=== PATIENT | female | born 1960 | race Caucasian/White ===

== ENCOUNTER 2021-05-22 10:48 | Outpatient (REF) | payer OTHER, SELFPAY ==
--- NOTE | ~2021-05-22 | MM_ITS ---
EXAMINATION: MM SCREENING DIGITAL BREAST TOMOSYNTHESIS, BILATERAL CLINICAL INFORMATION: Screening. Asymptomatic. The lifetime risk of breast cancer based on the Tyrer-Cuzick Model is 6.8%. COMPARISON: Mammography: January 01, 2019 and studies dating back to November 06, 2017 TECHNIQUE: Digital breast tomosynthesis is performed in both the craniocaudal and mediolateral oblique views along with computer-aided detection (CAD). Synthesized 2D images are generated from the tomosynthesis. FINDINGS: The breasts are heterogeneously dense, which may obscure small masses (ACR BI-RADS breast composition Category c). There are no significant masses, abnormal calcifications, or other abnormalities. Bilateral sternalis muscle densities noticed. MM/MM tomosynthesis screening BI IMPRESSION: There are no significant changes from prior study. ASSESSMENT: BI-RADS 1: Negative RECOMMENDATION: Routine annual mammography screening. This patient's information was entered into a reminder system with a target due date for their next mammogram.
== END 2021-05-22 10:49 | disposition home or self-care (01) ==
LOC: HO.MAMMO 10:48
PROVIDERS: Visit Provider Family Medicine
DX: Z12.31 Encounter for screening mammogram for malignant neoplasm of breast (principal)
CPT/HCPCS: 77063; 77067

== ENCOUNTER → 2021-08-08 10:07 | Outpatient (BNVA) | payer OTHER, SELFPAY | PROVIDERS: Visit Provider Physician Assistant Medical | DX: Z13.89 Encounter for screening for other disorder (principal) | CPT/HCPCS: 99203 ==

== ENCOUNTER 2024-06-10 10:26 | Outpatient (AMB) | payer BC, SELFPAY ==
--- OUTSIDE RECORDS SUMMARY | 2024-06-10 10:30 | XMS_ITS ---
Author Name [facility] Organization Unknown History of Medication Use Medication Directions Dispensed Refills Start Date End Date [facility] Eliquis 5 mg tablet TAKE 1 TABLET BY MOUTH EVERY 12 HOURS 06/03/2024 06/22/9999 active propranolol ER 120 mg capsule,24 hr,extended release TAKE 1 CAPSULE BY MOUTH EVERY DAY 06/03/2024 06/22/9999 active albuterol sulfate HFA 90 mcg/actuation aerosol inhaler INHALE 2 PUFFS EVERY 4 HOURS NEEDED FOR COUGH,WHEEZE,SHORT NESS OF BREATH 06/03/2024 06/22/9999 active lidocaine (PF) 10 mg/mL (1 %) injection solution Take 3 mL by injection route. 05/05/2024 06/22/9999 active Sutab 1.479-0.188-0.225 gram tablet PLEASE SEE ATTACHED FOR DETAILED DIRECTIONS 12/06/2023 active propranolol ER 120 mg capsule,24 hr,extended release TAKE 1 CAPSULE BY MOUTH EVERY DAY 12/06/2023 active ofloxacin 0.3 % eye drops PLACE 1 DROP IN SURGICAL EYE FOUR TIMES A DAY BEGIN ONE DAY AFTER SURGERY, 12/06/2023 active prednisolone acetate 1 % eye drops,suspension PLACE 1 DROP IN SURGICAL EYE FOUR TIMES A DAY BEGIN ONE DAY AFTER SURGERY, 12/06/2023 active albuterol sulfate HFA 90 mcg/actuation aerosol inhaler INHALE 2 PUFFS EVERY 4 HOURS NEEDED FOR COUGH,WHEEZE,SHORT NESS OF BREATH 12/06/2023 active Synthroid 150 mcg tablet Take 1 tablet every day by oral route. 11/15/2023 active Eliquis 5 mg tablet Take 1 tablet twice a day by oral route. 11/15/2023 active propranolol 11/15/2023 active Synthroid 150 MCG tablet Take 1 tablet (150 mcg total) by mouth daily. 07/24/2023 active fluticasone (FLONASE) 50 MCG/ACT nasal spray spray/apply 1 spray in each nostril daily. 07/24/2023 active propranolol (INDERAL LA) 120 MG 24 hr capsule TAKE 1 CAPSULE BY MOUTH EVERY DAY 09/04/2023 active apixaban (Eliquis) 5 MG tablet Take 1 tablet by mouth twice daily (every 12 hours). 01/19/2023 active propranolol (INDERAL LA) 120 MG 24 hr capsule Take 1 tablet by mouth daily. 01/19/2023 active apixaban (Eliquis) 5 MG TABS tablet Take 1 tablet (5 mg total) by mouth every 12 (twelve) hours. 09/04/2023 active levothyroxine (Synthroid) 150 MCG tablet Take 150 mcg by mouth daily. 01/19/2023 active propranolol (INDERAL LA) 120 MG 24 hr capsule TAKE 1 CAPSULE BY MOUTH EVERY DAY 07/24/2023 active fluticasone (FLONASE) 50 MCG/ACT nasal spray spray/apply 1 spray in each nostril daily. 09/04/2023 active apixaban (Eliquis) 5 MG TABS tablet Take 1 tablet (5 mg total) by mouth every 12 (twelve) hours. 09/04/2023 active levothyroxine (Synthroid) 150 MCG tablet Take 150 mcg by mouth daily. 01/19/2023 active albuterol (PROVENTIL HFA; VENTOLIN HFA) 108 (90 Base) MCG/ACT inhaler Inhale 2 puffs 4 times daily (every 6 hours) as needed for wheezing. 01/19/2023 active Synthroid 150 MCG tablet Take 1 tablet (150 mcg total) by mouth daily. 09/04/2023 active Sodium Sulfate-Mag Sulfate-KCl (Sutab) 4495-073-693 MG Tab Take 12 tablets by mouth once. One dose of 12 tablets on the Day Prior to procedure. One dose of 12 tablets on the Day Of the procedure. BIN: [id number] PCN: [id number] GROUP: [id number] ID: [id number] 01/19/2023 active albuterol 108 (90 Base) MCG/ACT inhaler Inhale 2 puffs into the lungs every 6 (six) hours as needed for wheezing. 07/24/2023 active fluticasone (FloNASE) 50 mcg/spray nasal spray 1 spray into each nostril daily. 01/19/2023 active albuterol 108 (90 Base) MCG/ACT inhaler Inhale 2 puffs into the lungs every 6 (six) hours as needed for wheezing. 09/04/2023 active apixaban (Eliquis) 5 MG TABS tablet Take 1 tablet (5 mg total) by mouth every 12 (twelve) hours. 07/24/2023 active Problems Problem Status Onset Date Problem Type Date of Resolution Source Effusion of joint of left knee active ProblemAct ENS_AONECT Closed fracture patella, vertical active ProblemAct ENS_AONECT Pain of knee region active ProblemAct ENS_AONECT Closed fracture of patella active ProblemAct ENS_AONECT Breast cancer screening by mammogram active EncounterDiagnosisAct HHCCT Current use of senior living anticoagulation active EncounterDiagnosisAct CTT HNEMG Chronic atrial fibrillation (HCC) active EncounterDiagnosisAct CTTHNEMG Pure hypercholesterolemia active EncounterDiagnosisAct CTTHNEMG Hypertension active ProblemAct CTTHJM H Fall active EncounterDiagnosisAct CTTHJMH Graves' disease active ProblemAct ENS_PHCCT Vitamin D deficiency active ProblemAct ENS_PHCCT Graves' disease active ProblemAct CTT HJMH Hypertensive disorder active ProblemAct ENS_PHCCT Postablative hypothyroidism active ProblemAct ENS_PHCCT Osteopenia active ProblemAct ENS_PHCCT Head injury active EncounterDiagnosisAct CTTHJMH Periorbital hematoma of left eye active EncounterDiagnosisAct CTTHJM H Immunizations Vaccine Date Source Lot Number Status tetanus toxoid, reduced diph theria toxoid, and acellular pertussis vaccine, adsorbed 03/26/2020 ENS_PHCCT [id number] A completed
--- OUTSIDE RECORDS SUMMARY | 2024-06-10 10:30 | XMS_ITS | Data Portability ---
Author Organization [place] [facility] CBO ADMIN Address [address] [facility] [place] [address] Care Team Providers Care Client Relation Specialist Name Role Phone JAGJIT SWIFT Filling Room Operator [phone] NORMA MACK Primary Care Provider Assessment Encounter Date Assessment Date Assessment LastModified by Organization Details LastModified Time 06/01/2024 06/01/2024 1. Postablative hypothyroidism. Reviewed 03/2024 labs. Clinically and biochemically euthyroid. Lab obtained on levothyroxine 150mcg daily. Monitoring free T4 levels closely as want to avoid over correction with history of SVT. She states PCP wanted to increase her blood pressure medications in interim. She has not been routinely monitoring blood pressures at home. Discussed that she should start doing ambulatory home blood pressure monitoring. If her blood pressure ranges are in good range she can use this as appropriate reason to not increase her blood pressure medications. 2. Longitudinal lateral left patella fracture She had BMD/DEXA in interim was told she had osteopenia on this. Was not recommended to start treatment. She started calcium and Vitamin D supplements after this. She had left knee aspiration on 05/03/2024. Was told that fluid is likely pseudo-gout. This was sent for a fluid analysis but she has not yet gotten results of this. Educated regarding potential etiologies of pseudo-gout such as: Hypercalcemia or Hyperparathyroidism. Reviewed her prior labs in [facility] and she has never had elevated PTH or calcium levels. Joint injuries and inflammation to site could also have triggered findings in the synovial fluid and potentially on the x-rays could give appearance of findings related to pseudo-gout. She could also have close pseudogout and in this case ruling out hyperparathyroidism is important with a PTH checked. She also has osteopenia and if there is underlying hyperparathyroidism it can also contribute. Discussed at great length with her. Will check PTH. Significant extra time was spent today on reviewing all available data in [facility] EHR and in [facility] EHR and reviewing orthopedic notes and discussing in detail. Not available 06/01/2024 19:56:56 Plan of Treatment Reminders Order Date Submit Date Provider Last Modified By Organization Details Last Modified Time Details Appointments OFFICE VISIT 15 2024 04:00P M Not available Not available Not available Lab TSH, serum or plasma 2023 [email or web address] [facility], [address] [place], [address], 06/09/2024 16:03:23 T4, free, serum 2023 [email or web address] [facility], [address] [place] [address], [id number], 06/09/2024 16:03:23 vitamin D, 25-hydro xy, total, serum 2023 024 [email or web address] [facility], [address] [place], [address], 06/09/2024 16:03:23 PTH (parathy roid hormone) , intact + calcium, serum or plasma 2023 024 [email or web address] [facility], [address] [place], [address], 06/09/2024 16:03:23 Referral None recorded . Procedures None recorded . Surgeries None recorded . Imaging None recorded . Medication Orders None recorded . Patient TargetsNo targets recorded. Patient Instructions Encounter Date Encounter Id Patient Instructions Last Modified By Organization Details Last Modified Time 06/01/2024 [id number] By signing my name below, IAbdullahi, attest that this documentation has been prepared under the direction and in the presence of Jagjit Swift MD. Electronically Signed: Abdullahi Mcbride. I, Jagjit Swift, personally performed the services described in this documentation. All medical record entries made by the scribe were at my direction and in my presence. I have reviewed the chart and discharge instructions (if applicable) and agree that the record reflects my personal performance and is accurate and complete. Jagjit Swift. Not available 06/01/2024 19:53:02 Reason for Referral None Reported. Problems Name Problem SNOMED Code Status Onset Date Resolution Date Notes Provider Name and Address Organization Details Recorded Time Postablat loreta hypothyro idism 612973212 Active 2018 Postablati ve hypothyroi dism Not Available [facility] 19:57:16 Graves' disease 070945338 Active 2015 Graves' disease - Overview: s/p radiactive iodine treatment Apr 2014 Not Available [facility] 19:57:16 Hypertens loreta disorder 52092351 Active 2015 Hypertensi on Not Available [facility] 19:57:16 Osteopeni a 705403748 Active 2023 Jagjit Swift MD [address] [place], [address] , [facility] 16:45:44 Vitamin D deficienc y 46143706 Active 2023 Jagjit Swift MD [address] [place], [address] , [facility] 16:46:04 Problem Notes None recorded. Medical Equipment None Reported. Medications Name Sig Start Date Stop Date Status Note LastModified by Organization Details LastModified Time Synthroid 150 mcg tablet Take 1 tablet (150 mcg total) by mouth daily. 2023 active Not Available Not Available Not Avai lable Synthroid 125 mcg tablet 8 tabs/wee k. Mon through Sat 1 tab and Sun 2 tabs. 10/28 completed Not Available Not Available Not Available propranolol ER 120 mg capsule,24 hr,extended release TAKE 1 CAPSULE BY MOUTH EVERY DAY active Not Available Not Available No t Available albuterol sulfate HFA 90 mcg/actuatio n aerosol inhaler Inhale 2 puffs into the lungs every 6 (six) hours as needed for wheezing . active Not Available Not Available No t Available fluticasone propionate 50 mcg/actuatio n nasal spray,suspen weston spray/ap ply 1 spray in each nostril daily. active Not Available Not Available No t Available Eliquis 5 mg tablet TAKE 1 TABLET BY MOUTH EVERY 12 HOURS active Not Available Not Available No t Available Vitals Date Recorded Body height Body mass index (BMI) Body weight Heart rate Oxygen saturation Oxygen saturation in Arterial blood by Pulse oximetry Systolic blood pressure Diastolic blood pressure Provider Name and Address Organization Details Last Updated DateTime 4 182.9 cm 24.5 kg/m2 84668.2 2 g 96 /min 97 % 97 % 120 mm[Hg] 80 mm[Hg] [facility] 16:27:24 Social History None recorded. Functional Status None recorded. Mental Status None recorded. Family History Nothing Reported. Medical History No medical history recorded. Gynecological HistoryNo gynecological history recorded. Obstetrics History GPAL:G 0 P 0 0 0 0 Immunizations Vaccine Type Date Status Note Provider Nam e and Address Organization Details Recorded Time Tdap 03/26/2020 completed Not Available [facility] 05/28/2024 22:55:07 Past Encounters Encounter ID Performer Location Encounter Start Date Encounter Closed Date Diagnosis/Indication Diagnosis SNOMED-CT Code Diagnosis ICD10 Code [id number] Jagjit Swift MD [address], [address] [place] [address] 06/01/2024 16:13:22 06/01/2024 16:51:07 Postablative hypothyroidism 425152776 E89.0 Osteopenia 243501862 M85 .80 Vitamin D deficiency 347 22735 E55.9 Health Concerns Section Related Observation LastModified by Organization Detai ls LastModified Time None Recorded Concern Status LastModified by Organization Details LastModified Time None Recorded Advance Directives Directive None Recorded Payers Encounter Date Sequence Insurance Name Policy Number Policy Redd Covered Member ID Redd Member ID Guarantor Name 06/01/2024 1 [place] [id number] Xenia Zee [id number] Xenia Zee Notes Date Note Type Note Provider Name and Address Organization Details Recorded Time 06/01/2024 text/html Post ablative hypothyroidism.She was initially hypothyroid, then became hyperthyroid and received radioactive iodine around March 2014. She was on a relatively stable dose of Synthroid 137 mcg daily and was maintaining normal TFTs in the past. Of note: Historically she had become hyponatremic to 127 and her HCTZ was discontinued by her kaiako kura tuarua.?? She has had SVT and continues to be in A. fib rate controlled and is on propranolol extended release 120 mg daily and on anticoagulation with Eliquis and follows with her kaiako kura tuarua every 6 months.?? She has had TFT variability over time. ??10/2022: Despite levothyroxine dose increase and maintaining on brand Synthroid TSH increased to 7.54 Levothyroxine was subsequently increase to 150mcg daily. Today: She is continuing on Levothyroxine 150mcg daily. Confirms taking with appropriate precautions. She is not monitoring her blood pressures at home.She states that her PCP wants to increase her anti-hypertensive medication but she is reluctant to do so. Notes that at other physician's visits her blood pressure is in good range. Patient fractured her left patella after slipping on a rug at [place]. States that she wore a brace for 10-11 weeks without much improvement. She had followed with orthopedic surgeon and told to take topical Voltaren which has not provided much relief. Continues to have aches and pain, ambulating with assistance of a cane. 0n 05/03/2024 she had left knee aspiration, fluid was sent for fluid analysis. Was told that her fluid is medical sales representative of pseudo-gout.She has no hx of hypercalcemia or hyperparathyroidism. After fracture had BMD/DEXA done and was told she had osteopenia, she was recommended to start calcium and Vitamin D supplements in interim. Was not told she needed to start anti-resorptive treatment. She offers no other physical complaints at this time. LABS:01/07/23: TSH: 4.26 , T4 FREE: 1.510/01/12: TSH: 2.45 , T4 FREE: 1.802/04/15: TSH: 1.85 , T4 FREE: 1.710: TSH: 3.35 , T4 FREE: 1.5 Jagjit Swift MD [address] [place], [address], [place] [facility] 06/01/2024 19:57:46 OBGyn Episode No OBEpisode recorded.
--- OUTSIDE RECORDS SUMMARY | 2024-06-10 10:30 | XMS_ITS | Continuity of Care Document ---
Author Organization [place] [facility] Address [address] [facility] [address], [address] [place] [address] Care Team Providers Care Bottom Loader Name Role Phone JAGJIT SWIFT Automotive Parts Advisor [phone] NORMA MACK Primary Care Provider [phone] Assessment Encounter Date Assessment Date Assessment LastModified [...] or Hyperparathyroidism. Reviewed her prior labs in [facility] and she has never had elevated PTH [...] today on reviewing all available data in [facility] EHR and in [facility] EHR and reviewing orthopedic notes and discussing in detail. Not available 06/01/2024 19:56:56 Plan of Treatment Reminders Order Date Submit Date Provider Last Modified By Organization Details Last Modified Time Details Appointments OFFICE VISIT 15 2024 04:00P M Not available Not available Not available Lab TSH, serum or plasma 2023 024 [email or web address] [facility], [address] [place] [address], [address], 06/09/2024 16:03:23 T4, free, serum 2023 024 [email or web address] [facility], [address] [place] [address], [address], 06/09/2024 16:03:23 vitamin D, 25-hydro xy, total, serum 2023 024 [email or web address] [facility], [address] [place], [address], 06/09/2024 16:03:23 PTH (parathy roid hormone) , intact + calcium, serum or plasma 2023 024 [email or web address] [facility], [address] [place] [address], [address], 06/09/2024 16:03:23 Referral None recorded . Procedures None recorded . Surgeries None recorded . Imaging None recorded . Medication Orders None recorded . Patient TargetsNo targets recorded. Patient Instructions Encounter Date Encounter Id Patient Instructions Last Modified By Organization Details Last Modified Time 06/01/2024 [id number] By signing my name below, IAbdullahi, attest [...] Details Recorded Time Postablat loreta hypothyro idism 808539305 Active 2018 Postablati ve hypothyroi dism Not Available [facility] 4 19:57:16 Graves' disease 419913281 Active 2015 Graves' disease - Overview: s/p radiactive iodine treatment Apr 2014 Not Available [facility] 4 19:57:16 Hypertens loreta disorder 53143612 Active 2015 Hypertensi on Not Available [facility] 4 19:57:16 Osteopeni a 967855729 Active 2023 Jagjit Swift MD [address] [place], [address] , [employer] [facility] 4 16:45:44 Vitamin D deficienc y 15435927 Active 2023 Jagjit Swift MD [address] [place], [address] , [facility] 4 16:46:04 Problem Notes None recorded. Medical Equipment None Reported. Medications Name Sig Start Date Stop Date Status Note LastModified by Organization Details LastModified Time Synthroid 150 mcg tablet Take 1 tablet (150 mcg total) by mouth daily. 2023 active Not Available Not Available Not Avai lable Synthroid 125 mcg tablet 8 tabs/debbiee k. Mon through Sat 1 tab and [...] Updated DateTime 4 182.9 cm 24.5 kg/m2 76374.2 2 g 96 /min 97 % 97 % 120 mm[Hg] 80 mm[Hg] [facility] 4 16:27:24 Social History None recorded. [...] Diagnosis/Indication Diagnosis SNOMED-CT Code Diagnosis ICD10 Code [id number] Jagjit Swift MD [address], [address] [place] [address] 06/01/2024 16:13:22 06/01/2024 16:51:07 Postablative hypothyroidism 631857783 E89.0 Osteopenia 404107587 M85 .80 Vitamin D deficiency 347 66166 E55.9 Health Concerns Section Related Observation LastModified by Organization Detai ls LastModified Time None Recorded Concern Status LastModified by Organization Details LastModified Time None Recorded Payers Encounter Date Sequence Insurance Name Policy Number Policy Redd Covered Member ID Redd Member ID Guarantor Name 06/01/2024 1 [place] [id number] Xenia Zee [id number] Xenia Zee Notes Date Note Type [...] and her HCTZ was discontinued by her supervisor insecticide.?? She has had SVT and continues to be in A. fib rate controlled and is on propranolol extended release 120 mg daily and on anticoagulation with Eliquis and follows with her supervisor insecticide every 6 months.?? She has had TFT [...] analysis. Was told that her fluid is residential sales representative of pseudo-gout.She has no hx [...] T4 FREE: 1.5 Jagjit Swift MD [address] [place], [address], [place] [facility] 06/01/2024 19:57:46 OBGyn Episode No OBEpisode recorded.
--- OUTSIDE RECORDS SUMMARY | 2024-06-10 10:30 | XMS_ITS | Data Portability ---
Author Organization [place] [facility] Suzi Munoz [place] [place] Address [address] [place] [address] Care Team Providers Care Legal Counsel Name Role Phone NORMA MACK Primary Care Provider [phone] NROMA MACK Referring Provider Assessment Encounter Date Assessment Date Assessment LastModified by Organization Details LastModified Time 11/13/2023 11/13/2023 She sustained a longitudinal lateral patella fracture. Will be able to manage this nonoperatively. She was fit with a hinged knee brace and will use this for ambulation. This will allow her to maintain her range of motion. She will avoid any high impact activity. Plan to follow-up in 3 weeks for repeat assessment with repeat left knee x-rays Patient was prescribed a hinged knee brace for above diagnosis. The patient is ambulatory but has weakness and/or instability of their Left knee which requires stabilization from this semi-rigid / rigid orthosis to improve their function. [email or web address] Not available 11/13/2023 15:16:29 12/04/2023 12/04/2023 Her vertical pat arely fracture is healing very well. Continue to manage this nonoperatively. Continue in the core flex hinged brace. She can continue with her lunchtime walks. She would like to defer physical therapy at this time. Plan to follow-up in 3 to 4 weeks for repeat assessment and repeat left knee x-rays [email or web address] Not available 12/04/2023 16:25:57 01/01/2024 01/01/2024 She is now approximately 2 months after what was likely a patella fracture, although it is difficult to determine that this was not bipartite, but on her initial x-rays this does seem to be more consistent with a fracture. She is currently doing well and has no limitations. She may follow-up as needed. Not available 01/03/2024 12:10:50 05/03/2024 05/03/2024 She elected to move forward with a left knee aspiration which was tolerated well. Fluid consistent with pseudogout for which she would like to monitor her symptoms. Fluid was sent for analysis. Will contact her with the results. Recommend compression with an Yuval bandage, ice and reducing her activity. She will monitor for any recurrent symptoms and will contact the office to make an appointment with one of our knee specialist in the future if needed. Patient was seen and evaluated by Pb Ann PA-C in indirect conjunction with Documenting Provider: Katerine Bacon MD He/She agrees with history, physical examination, tests/diagnostic imaging, and treatment plan [email or web address] Not available 05/03/2024 12:51:59 05/28/2024 05/28/2024 The above findin gs were discussed in detail with the patient today. AI discussed the history, clinical examination, and imaging findings with the patient in detail today. At this point her left medial joint line pain is likely related to early degenerative changes. I have told them that ultimately for a person with early degenerative changes about the knee, like they have (the cartilage wear and tear), that the mainstay of treatment are things like time, rest, relative rest, activity modification, physical therapy or home strengthening (specifically quadriceps, hamstrings, and core musculature) programs, weight loss with or without a college scouting coordinator/director it assistance, stations superintendent bracing if desired/tolerated, prescription strength oral anti-inflammatories if they can be safely tolerated (may need to discuss with primary care provider), Tylenol, and intermittent use of corticosteroid injections and consideration of viscosupplementation injections. My recommendation that she pursue activity modification, relative rest, time as well as prescription for physical therapy focusing quadriceps, hamstrings and core muscle strengthening. She may continue judicious use of antipyretics and anti-inflammatory medication. I did recommend utilization of cryotherapy as well as topical anti-inflammatory medication. Lastly, we did review the risks and benefits and alternatives related to corticosteroid injection of the knee. At this point patient politely declined pursuing injection. Patient will return in 6 weeks for repeat clinical evaluation. Patient was in agreement this plan all questions were answered to satisfaction. PRIOR TK 05/03/24 She elected to move forward with a left knee aspiration which was tolerated well. Fluid consistent with pseudogout for which she would like to monitor her symptoms. Fluid was sent for analysis. Will contact her with the results. Recommend compression with an Yuval bandage, ice and reducing her activity. Not available 05/28/2024 10:59:03 Plan of Treatment Reminders Order Date Submit Date Provider Last Modified By Organization Details Last Modified Time Details Appointments ESTABLISH ED/AONE REFERRAL 2024 04:15P Maida Ann PA-C Not available Not available Not available Lab crystals, synovial fluid 2023 024 Not available 05/10/2024 09:33:46 cell count w/ diff, synovial fluid 2023 024 [email or web address] Not available 05/10/2024 09:33:46 culture, synovial fluid 2023 024 Not available 05/10/2024 09:33:46 Referral orthopedi c physical therapist referral - Other Comments: 2023 024 wendi Ann Not available 05/28/2024 10:55:10 Procedures None recorded. Surgeries None recorded. Imaging XR, knee, 3 view 2023 024 [email or web address] [facility], [address], [place], [address], 11/13/2023 20:58:52 XR, knee, 3 view 2023 024 [email or web address] [facility], [address], [address], [place], [address], 12/05/2023 10:31:56 XR, knee, 3 view 2023 024 [email or web address] [facility], [address], [address], [place], [address], 01/01/2024 19:18:53 XR, knee, 3 view 2023 024 [email or web address] [facility], [address], [address], [place], [address], 05/03/2024 16:28:09 XR, knee, 3 view 2023 024 [email or web address] [facility], [address], [address], [place], [address], 06/01/2024 08:44:02 Medication Orders lidocaine (PF) 10 mg/mL (1 %) injection solution 2023 024 [email or web address] [id number], [address] [place], [address], 05/03/2024 16:28:09 Patient TargetsNo targets recorded. Patient Instructions Encounter Date Encounter Id Patient Instructions Last Modified By Organization Details Last Modified Time 11/13/2023 [id number] X-rays of the le ft knee were obtained in the [place] office on 11/13/2019 force demonstrates a longitudinal lateral patella fracture [email or web address] Not available 11/13/2023 15:16:13 12/04/2023 [id number] X-rays of the le ft knee were obtained in the [place] office on12/04/2023 demonstrates a longitudinal lateral patella fracture with interval callus Not available 12/04/2023 16:26:11 01/01/2024 [id number] X-rays of the le ft knee obtained on 01/01/2024 demonstrate a lateral facet patella fracture. Not available 01/03/2024 12:11:05 05/03/2024 [id number] X-rays of the le ft knee obtained on 05/03/2024 demonstrate a stable lateral facet patella fracture With interval healing from prior x-rays. No new acute osseous abnormalities. 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 There is mild joint space narrowing along the medial compartment. Neutral alignment. Mild DJD noted. No other acute fractures or osseous abnormalities Not available 05/28/2024 10:56:36 Reason for Referral Other Comments: Referring Physician: Roque Mckeon, Orthopedic Surgery, Encounter Date: 05/28/2024 Results Created Date Observation Date Name Description Value Unit Range Abnormal Flag Note LastModifiedBy Organization Detail LastModifiedTime Result Notes None recorded. Problems Name Problem SNOMED Code Status Onset Date Resolution Date Notes Provider Name and Address Organization Details Recorded Time Closed fracture patella, vertical 994791798 Active [address], [place], [address] , [place] [facility] 4 15:16:02 Pain of left knee region 05484996094611 9 Active [address], [place], [address] , [place] [facility], [facility] 4 16:24:26 Closed fracture of patella 54173426 Active [address], [place], [address] , [place] [facility] 4 11:11:07 Effusion of joint of left knee 01239701825746 5 Active [address], [place], [address] , [place] [facility], [facility] 4 12:27:10 Pain of knee region 1665001777 Active [address], [place], [address] , [place] [facility], [facility] 4 10:50:13 Problem Notes None recorded. Procedures Surgical History Date Name Laterality Status Provider Name and Address Organization Details Recorded Time 4 MJG Knee Aspiration completed [address], [place], [address], [place] [facility] 05/03/2024 12:52:32 Tmj repair of joint disc completed Zeny Coombs [facility] 11/13/2023 14:36:39 Imaging Results None recorded. Procedure Notes None recorded. Medical Equipment None Reported. Allergies No known drug allergies Medications Name Sig Start Date Stop Date Status Note LastModified by Organization Details LastModified Time ofloxacin 0.3 % eye drops PLACE 1 DROP IN SURGICAL EYE FOUR TIMES A DAY BEGIN ONE DAY AFTER SURGERY, 12/31 completed Not Available Not Available Not Available Synthroid 150 mcg tablet Take 1 tablet every day by oral route. active Not Available Not Available No t Available prednisolon e acetate 1 % eye drops,suspe nsion PLACE 1 DROP IN SURGICAL EYE FOUR TIMES A DAY BEGIN ONE DAY AFTER SURGERY, 12/31 completed Not Available Not Available Not Available propranolol ER 120 mg capsule,24 hr,extended release TAKE 1 CAPSULE BY MOUTH EVERY DAY active Not Available Not Available No t Available albuterol sulfate HFA 90 mcg/actuati on aerosol inhaler INHALE 2 PUFFS EVERY 4 HOURS NEEDED FOR COUGH,WHE CATRACHO,SHORT NESS OF BREATH active Not Available Not Available No t Available calcium active Not Available Not Avail able Not Available propranolol 12/31 completed Not Available Not Available Not Available lidocaine (PF) 10 mg/mL (1 %) injection solution Take 3 mL by injection route. 2023 active Not Available Not Available Not Avai lable Eliquis 5 mg tablet TAKE 1 TABLET BY MOUTH EVERY 12 HOURS active Not Available Not Available No t Available Sutab 1.479-0.188 -0.225 gram tablet PLEASE SEE ATTACHED FOR DETAILED DIRECTION S 12/31 completed Not Available Not Available Not Available Vitals Date Recorded Body height Body mass index (BMI) Body weight Provider Name and Address Organization Details Last Updated DateTime 11/13/2023 182.88 cm 22 kg/m2 17875.96 g Zeny Coombs [facility] 11/13/2023 14:35:24 Date Recorded Body height Provider Name an d Address Organization Details Last Updated DateTime 01/01/2024 182.88 cm Yamilka Connelly [facility] 01/01/2024 16:09:56 Date Recorded Body height Body mass index (BMI) Body weight Provider Name and Address Organization Details Last Updated DateTime 05/03/2024 182.88 cm 22 kg/m2 19519.[address] [place] [facility] 05/03/2024 11:39:58 Date Recorded Body height Provider Name an d Address Organization Details Last Updated DateTime 05/28/[address]24 [address] [place] [facility] 05/28/2024 10:56:18 Social History Question Answer Notes LastModified by Organizat ion Details LastModified Time Tobacco Smoking Status Never Smoker Zeny Mcmullenshantanu [place], [place] [facility] 11/13/2023 14:35:44 What Is Your Level Of Alcohol Consumption? Occasional [email or web address] Information not available 11/13/2023 How Many Times Per Week Do You Consume Alcohol? Less Than 1 Time Per Week [email or web address] Information not available 11/13/2023 Are You Currently Employed? 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 No [email or web address] Information not available 11/13/2023 Do You Or Have You Ever Used Any Other Forms Of Tobacco Or Nicotine? No [email or web address] Information not available 11/13/2023 Sex: Unknown Functional Status None recorded. Mental Status None recorded. Family History Relationship Description Onset Age of this Age Resolved Age Notes LastModified by Organization Details LastModified Time Father History of hypertension Not available 14:36:29 Mother History of hypertension [email or web address] Not available 14:36:29 Medical History Condition Response Osteopenia Y Hypertension Y Asthma Y Gynecological HistoryNo gynecological history recorded. Obstetrics History GPAL:G 0 P 0 0 0 0 Past Encounters Encounter ID Performer Location Encounter Start Date Encounter Closed Date Diagnosis/Indication Diagnosis SNOMED-CT Code Diagnosis ICD10 Code [id number] Katerine Bacon MD [facility] [address] [place] [address] 11/13/2023 14:07:24 11/13/2023 15:10:55 Pain of left knee region 0318071556 30395 M25.562 Closed fra cture patella, vertical 897211953 S82.025A [id number] MD MARYAN Huerta [place] [address] [facility] [address] [address] [address] [place] [address] 12/04/2023 15:49:07 12/04/2023 16:25:23 Closed fracture patella, vertical 933328689 S82.025A Pain of le ft knee region 2563108832 79951 M25.562 [id number] MD MARYAN Huerta [place] [address] [facility] [address] [place] [address] 01/01/2024 15:31:22 01/01/2024 16:18:34 Closed fracture of patella 88159634 S82.001D [id number] MD MARYAN Huerta [address] [facility] [place] [address] 05/03/2024 11:23:47 05/03/2024 12:11:29 Closed fracture of patella 03336386 S82.001D Pain of knee region 1003 842437 M25.562 Effusion o f joint of left knee 2856177575 03213 M25.462 [id number] Roque Mckeon MD [facility] [address] [place] [address] 05/28/2024 10:05:08 05/28/2024 10:55:10 Closed fracture patella, vertical 547197789 S82.025A Pain of knee region 1003 032890 M25.562 Health Concerns Section Related Observation LastModified by Organization Detai ls LastModified Time None Recorded Concern Status LastModified by Organization Details LastModified Time None Recorded Advance Directives Directive None Recorded Payers Encounter Date Sequence Insurance Name Policy Number Policy Redd Covered Member ID Redd Member ID Guarantor Name 11/13/2023 1 [place] [id number] 1 Lalo Zee [id number] Xenia Zee 12/04/2023 1 [place] [id number] 1 Lalo Zee [id number] Xenia Zee 01/01/2024 1 [place] [id number] 1 Lalo Zee [id number] Xenia Zee 05/03/2024 1 [place] [id number] 1 Lalo Zee [id number] Xenia Zee 05/28/2024 1 [place] [id number] 1 Lalo Zee [id number] Xenia Zee Notes Date Note Type Note Provider Name and Address Organization Details Recorded Time 11/13/2023 text/html Date of injury: 11/06/2023 Xenia Zee is a 63-year-old female who presents to the office as a walk-in patient for evaluation regarding her left knee. 1 week ago [place] when she tripped on a rug landing onto the left knee. She did develop immediate swelling and pain however decided to monitor this. Now that her pain is not improving she decided to be evaluated. She denies any prior knee injuries. She has been elevating and icing. Past medical history significant for asthma, hypertension, thyroid disease and osteopenia. She is on Eliquis 5 mg daily. She drinks alcohol socially. She does not smoke. 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 Katerine Bacon MD [address], [place], [address], [place] [facility] 11/15/2023 13:03:43 12/04/2023 text/html Date of injury: 11/06/2023 Xenia Zee is a 63-year-old female who presents today for repeat evaluation regarding the left knee. She has been doing very well. She has very little pain. She has been walking about 30 minutes on lunchtime with no problem. She is utilizing the stairs with no difficulty. She has been using the core flex hinged brace which has been supportive for her. From 11/13/23 CARLOS: to the office as a walk-in patient for evaluation regarding her left knee. 1 week ago she was [place] when she tripped on a rug landing onto the left knee. She did develop immediate swelling and pain however decided to monitor this. Now that her pain is not improving she decided to be evaluated. She denies any prior knee injuries. She has been elevating and icing. Past medical history significant for asthma, hypertension, thyroid disease and osteopenia. She is on Eliquis 5 mg daily. She drinks alcohol socially. She does not smoke. 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 Katerine Bacon MD [address], [place], [address], [place] [facility] 12/07/2023 20:48:26 01/01/2024 text/html Date of injury: 11/06/2023 Xenia Zee is a 63-year-old female who presents today for follow-up evaluation regarding her left patella fracture. She reports that she has no issues. She currently has no pain. From 12/04/23 (TK): for repeat evaluation regarding the left knee. She has been doing very well. She has very little pain. She has been walking about 30 minutes on lunchtime with no problem. She is utilizing the stairs with no difficulty. She has been using the core flex hinged brace which has been supportive for her. From 11/13/23 CARLOS: to the office as a walk-in patient for evaluation regarding her left knee. 1 week ago she was [place] when she tripped on a rug landing onto the left knee. She did develop immediate swelling and pain however decided to monitor this. Now that her pain is not improving she decided to be evaluated. She denies any prior knee injuries. She has been elevating and icing. Past medical history significant for asthma, hypertension, thyroid disease and osteopenia. She is on Eliquis 5 mg daily. She drinks alcohol socially. She does not smoke. 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 MD Carlos [address], [place], [address], [place] [facility] 01/03/2024 12:11:17 05/03/2024 text/html Date of injury: 11/06/2023 Xenia Zee is a 63-year-old female who presents today for follow-up evaluation regarding her left knee. Her injury is approximately 6 months old. She notes new swelling Over the weekend after walking. She has been back at her walking routine for quite a while now but does not not know why all of a sudden her swelling has returned. She denies any injury or trauma. She denies any erythema or warmth to the knee. She denies any recent fevers. From 01/01/24 (AJF): She reports that she has no issues. She currently has no pain. From 12/04/23 (TK): for repeat evaluation regarding the left knee. She has been doing very well. She has very little pain. She has been walking about 30 minutes on lunchtime with no problem. She is utilizing the stairs with no difficulty. She has been using the core flex hinged brace which has been supportive for her. From 11/13/23 CARLOS: to the office as a walk-in patient for evaluation regarding her left knee. 1 week ago [place] when she tripped on a rug landing onto the left knee. She did develop immediate swelling and pain however decided to monitor this. Now that her pain is not improving she decided to be evaluated. She denies any prior knee injuries. She has been elevating and icing. Past medical history significant for asthma, hypertension, thyroid disease and osteopenia. She is on Eliquis 5 mg daily. She drinks alcohol socially. She does not smoke. 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 PB ANN PA-C [address], [place], [address], [place] [facility] 05/03/2024 12:53:23 05/28/2024 text/html Patient presents to the virtual urgent care regarding continued medial left knee pain. She previously saw Pb Mark in urgent care on 05/03/2024 for which the knee was drained. Results of the aspirate were negative for infection or inflammatory pathology. Negative for crystals. She has been utilizing her hinged knee brace for comfort. She states that she has difficulty walking up and down stairs particular at work. 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 PRIOR TK 05/03/24Date of injury: 11/06/2023 Xenia Zee is a 63-year-old female who presents today for follow-up evaluation regarding her left knee. Her injury is approximately 6 months old. She notes new swelling Over the weekend after walking. She has been back at her walking routine for quite a while now but does not not know why all of a sudden her swelling has returned. She denies any injury or trauma. She denies any erythema or warmth to the knee. She denies any recent fevers. From 01/01/24 (AJF): She reports that she has no issues. She currently has no pain. From 12/04/23 (TK): for repeat evaluation regarding the left knee. She has been doing very well. She has very little pain. She has been walking about 30 minutes on lunchtime with no problem. She is utilizing the stairs with no difficulty. She has been using the core flex hinged brace which has been supportive for her. From 11/13/23 CARLOS: to the office as a walk-in patient for evaluation regarding her left knee. 1 week ago [place] she tripped on a rug landing onto the left knee. She did develop immediate swelling and pain however decided to monitor this. Now that her pain is not improving she decided to be evaluated. She denies any prior knee injuries. She has been elevating and icing. Past medical history significant for asthma, hypertension, thyroid disease and osteopenia. She is on Eliquis 5 mg daily. She drinks alcohol socially. She does not smoke. 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 Roque Mckeon MD [address], [place], [address], [place] [facility] 05/28/2024 10:59:29 OBGyn Episode No OBEpisode recorded.
--- OUTSIDE RECORDS SUMMARY | 2024-06-10 10:30 | XMS_ITS | Continuity of Care Document ---
Author Organization [place] [facility] Suzi Munoz [facility] Address [address] [place] [address] Care Team Providers Care Sales Officer Name Role Phone NORMA MACK Primary Care Provider [phone] NORMA MACK Referring Provider Assessment Encounter Date Assessment Date Assessment LastModified by Organization Details LastModified Time 05/28/2024 05/28/2024 The above findin gs were discussed in detail with the patient today. SILVIANO discussed the history, clinical examination, and imaging [...] programs, weight loss with or without a salesperson sewing machines/public defender assistance, grader meat bracing if desired/tolerated, prescription strength oral anti-inflammatories [...] Details Appointments ESTABLISH ED/AONE REFERRAL 2024 04:15P M Pb Goff PA-C Not available Not available Not available Lab None recorded. Referral orthopedi c physical therapist referral - Other Comments: 2023 024 wendi Ann Not available 05/28/2024 10:55:10 Procedures None recorded. Surgeries None recorded. Imaging XR, knee, 3 view 2023 024 [email or web address] [facility], [address], [address], [place], [address], 06/01/2024 08:44:02 Medication Orders None recorded. Patient TargetsNo targets recorded. Patient Instructions Encounter Date Encounter Id Patient Instructions Last Modified By Organization Details Last Modified Time 05/28/2024 [id number] Imaging: {{RIGHT LEFT*}} knee three view radiographs [...] Roque Mckeon, Orthopedic Surgery, Encounter Date: 05/28/2024 Problems Name Problem SNOMED Code Status Onset Date Resolution Date Notes Provider Name and Address Organization Details Recorded Time Closed fracture patella, vertical 769709909 Active 2023 PB GOFF PA-C [address], [place], [address] , [place] [facility], [facility] 4 15:16:02 Pain of left knee region 22929853878153 9 Active 2023 PB GOFF PA-C [address] [address], [place], [address] , [place] [facility], [facility] 4 16:24:26 Closed fracture of patella 84380865 Active 2023 PB GOFF PA-C [address] [address], [place], [address] , [place] [facility], [facility] 4 11:11:07 Effusion of joint of left knee 57904875131012 5 Active 2023 PB GOFF PA-C [address] [address], [place], [address] , [place] [facility], [facility] 4 12:27:10 Pain of knee region 1695568400 Active 2023 Roqeu Mckeon MD [address] [address], [place], [address] , [place] [facility], P 4 10:50:13 Problem Notes None recorded. Procedures Surgical History Date Name Laterality Status Provider Name and Address Organization Details Recorded Time 4 MJG Knee Aspiration completed [address] [address], [place], [address], [facility] - [facility], P 05/03/2024 12:52:32 Tmj repair of joint disc completed Zeny Coombs [facility], P 11/13/2023 14:36:39 Imaging Results None recorded. [...] Not Available Vitals Date Recorded Body height Provider Name an d Address Organization Details Last Updated DateTime 05/28/2024 182.88 cm [facility] 05/28/2024 10:56:18 Social History Question Answer Notes LastModified by Organizat ion Details LastModified Time Tobacco Smoking Status Never Smoker Zeny damon, [facility] 11/13/2023 14:35:44 What Is Your Level Of Alcohol Consumption? Occasional [email or web address] Information not available 11/13/2023 How Many Times Per Week Do You Consume Alcohol? Less Than 1 Time Per Week [email or web address] Information not available 11/13/2023 Are You Currently Employed? 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 No [email or web address] Information not available 11/13/2023 Do You Or Have You Ever Used Any Other Forms Of Tobacco Or Nicotine? No [email or web address] Information not available 11/13/2023 Sex: Unknown Functional Status None recorded. Mental Status None recorded. Family History Relationship Description Onset Age of this Age Resolved Age Notes LastModified by Organization Details LastModified Time Father History of hypertension [email or web address] Not available 14:36:29 Mother History of hypertension [email or web address] Not available 14:36:29 Medical History Condition Response Osteopenia Y Hypertension Y Asthma Y Gynecological HistoryNo gynecological history recorded. Obstetrics History GPAL:G 0 P 0 0 0 0 Past Encounters Encounter ID Performer Location Encounter Start Date Encounter Closed Date Diagnosis/Indication Diagnosis SNOMED-CT Code Diagnosis ICD10 Code [id number] MD MARYAN Huerta [address] [facility] [place] [address] 05/03/2024 11:23:47 05/03/2024 12:11:29 Closed fracture of patella 99227751 S82.001D Pain of knee region 1003 654717 M25.562 Effusion o f joint of left knee 6659668014 15874 M25.462 [id number] Roque Mckeon MD [facility] [address] [place] [address] 05/28/2024 10:05:08 05/28/2024 10:55:10 Closed fracture patella, vertical 317364746 S82.025A Pain of knee region 1003 697822 M25.562 Health Concerns Section Related Observation LastModified by Organization Detai ls LastModified Time None Recorded Concern Status LastModified by Organization Details LastModified Time None Recorded Payers Encounter Date Sequence Insurance Name Policy Number Policy Redd Covered Member ID Redd Member ID Guarantor Name 05/28/2024 1 [place] MEYER ([place]O) [id number] 1 Lalo Zee [id number] Xenia Saadia Notes Date Note Type Note Provider Name and Address Organization Details Recorded Time 05/28/2024 text/html Patient presents to the virtual [...] 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 Roque Mckeon MD [address], [place], [address], [place] [facility], [facility] 05/28/2024 10:59:29 OBGyn Episode No OBEpisode recorded.
--- NOTE | 2024-06-10 10:34 | A.OFFVIS_ITS ---
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 Patient reports she tripped on a rug in [place] which lead her to land on her knee. Patient reports she is feeling a lot of pain on the lateral aspect of her knee. She was evaluated at another [facility] when she got a knee brace and she was diagnosed with pseudogout. Patient mentions she got her knee drained 05/03. 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 She has had physical therapy for her left knee in the past. While in the office today, the patient reports she tripped on a rug at [employer] [place], causing her to fall and land on her left knee. She specifies experiencing a severe pain on the lateral aspect of her left knee. She was evaluated at another [facility] and was diagnosed with pseudogout. She was provided with a knee brace. She mentions she had her knee drained on 05/03/24. [facility] Medical History (Updated 06/10/24 @ 14:51 by Yoanna Gould PA-C) Left patella fracture Social History (Updated 06/10/24 @ 10:42 by Polo Pizarro) Alcohol intake: current Alcohol intake frequency: holidays/special occasions only Patient Tobacco Use Status: Never used Tobacco Current occupational status: employed Review of Systems Const All systems reviewed & are unremarkable except as noted in HPI and below Physical Exam Const General: cooperative and no acute distress Orientation/consciousness: patient oriented x3 Resp Effort & Inspection: normal respiratory effort and able to speak in complete sentences Cardio Peripheral pulses: Peripheral pulses 2+ throughout Skin General skin exam: no rashes or lesions noted Neuro General: patient oriented x3 Extrem Other: Left knee: Normal to inspection. No ecchymosis or erythema. Mild effusion. No tenderness to palpation along the medial or lateral joint lines. Full knee extension and flexion. Pain with valgus stress. Negative Steinmans. Negative anterior drawer. NVI. Assessment & Plan Assessment & Plan (1) Osteoarthritis of left knee: Code(s): M17.12 - Unilateral primary osteoarthritis, left knee Category: Medical (2) Fall: Code(s): W19.XXXA - Unspecified fall, initial encounter Category: Medical Plan Ms. Zee is a 63-year-old female who presents in the office today, as a new patient, for an evaluation of left patella fracture status post a fall that occurred on 11/07/23. She has had physical therapy for her left knee in the past. While in the office today, the patient reports she tripped on a rug at [place], causing her to fall and land on her left knee. She specifies experiencing a severe pain on the lateral aspect of her left knee. She was evaluated at another [facility] and was diagnosed with pseudogout. She was provided with a knee brace. She mentions she had her knee drained on 05/03/24. The patient does have a history of surgical history for TMJ. She reports that she does have a metal wire in her jaw. Therefore, she will follow up with her dentist tomorrow and will ask if the wire in her jaw is MRI safe. If it is safe, then I am happy to order an MRI of the left knee, and if not, then we would move forward with the CT scan to further evaluate the integrity of the knee and surrounding structures. Follow-up will be after the CT or MRI results are obtained, or sooner if needed. X-rays of the left knee, which were obtained while in the office today and were reviewed by me, Yoanna Gould PA-C, revealed: Evidence of prior lateral patellar fracture. Patient Instructions: Scribed by Che Bauer site medical director, for Yoanna Gould PA-C on 06/10/24 at 11:00 am EST. Coding Level of Care Code New Pt Level 3 (93773) Diagnoses Osteoarthritis of left knee M17.12 Fall W19.XXXA
== END 2024-06-10 11:10 | disposition home or self-care (01) ==
PROVIDERS: PCP Family Medicine; Visit Provider Physician Assistant
DX: M17.12 Unilateral primary osteoarthritis, left knee (principal); W19.XXXA Unspecified fall, initial encounter
CPT/HCPCS: 99203

== ENCOUNTER 2024-06-10 11:15 | Outpatient (REF) | payer BC, SELFPAY ==
--- NOTE | ~2024-06-10 | XR_ITS ---
EXAMINATION: XR KNEE, LEFT CLINICAL INFORMATION: Knee pain. COMPARISON: None available. TECHNIQUE: Lateral and sunrise views of the left knee. FINDINGS: No acute fracture or dislocation. Mild medial and patellofemoral compartment joint space narrowing with small marginal osteophytes. No osseous erosion. No abnormal soft tissue calcification. Moderate joint effusion. XR/XR knee LT 3V IMPRESSION: Mild medial and patellofemoral compartment osteoarthritis. Moderate joint effusion. Electronically signed by: Mark Horne MD 06/11/2024 10:53 PM [facility]
--- NOTE | ~2024-06-10 | XR_ITS ---
EXAMINATION: XR KNEE, RIGHT CLINICAL INFORMATION: M25.569 - Pain in unspecified knee COMPARISON: None available. TECHNIQUE: Single AP upright view of the right knee. FINDINGS: Mild to moderate osteoarthritis of the medial compartment with marginal osteophytes and mild joint space narrowing. Lateral compartment normal. Surrounding bone and soft tissues unremarkable. Cannot assess patellofemoral compartment XR/XR knee RT 1V IMPRESSION: Limited evaluation of the right knee: Mild to moderate osteoarthritis of the medial compartment. Electronically signed by: Michael Christie MD 06/11/2024 09:01 PM [facility]
--- OUTSIDE RECORDS SUMMARY | 2024-06-11 11:22 | XMS_ITS | Data Portability ---
Author Organization [place] [facility] Suzi Munoz [facility] [place] Address [address] [place] [address] Care Team Providers Care Senior Mechanical Design Engineer Name Role Phone NORMA MACK Primary Care Provider NORMA MACK Referring Provider Assessment Encounter Date [...] / rigid orthosis to improve their function. [email or web address] Not available 11/13/2023 15:16:29 12/04/2023 12/04/2023 Her vertical pat arely fracture is healing very well. Continue to manage this nonoperatively. Continue in the core flex hinged brace. She can continue with her lunchtime walks. She would like to defer physical therapy at this time. Plan to follow-up in 3 to 4 weeks for repeat assessment and repeat left knee x-rays [email or web address] Not available 12/04/2023 16:25:57 01/01/2024 01/01/2024 She [...] physical examination, tests/diagnostic imaging, and treatment plan [email or web address] Not available 05/03/2024 12:51:59 05/28/2024 05/28/2024 The [...] programs, weight loss with or without a metal expediter/fur grader assistance, primary operator bracing if desired/tolerated, prescription strength oral anti-inflammatories [...] available Lab crystals, synovial fluid 2023 024 [email or web address] Not available 05/10/2024 09:33:46 cell count w/ diff, synovial fluid 2023 024 [email or web address] Not available 05/10/2024 09:33:46 culture, synovial fluid 2023 024 [email or web address] Not available 05/10/2024 09:33:46 Referral orthopedi c physical therapist referral - Other Comments: 2023 024 wendi Ann Not available 05/28/2024 10:55:10 Procedures None recorded. Surgeries None recorded. Imaging XR, knee, 3 view 2023 024 [email or web address] [facility], [address], [address], [place], [address], 11/13/2023 20:58:52 XR, knee, 3 view 2023 024 [email or web address] [facility], [address], [address], [place], [address], 12/05/2023 10:31:56 XR, knee, 3 view 2023 024 [email or web address] [facility], [address], [address], [place], [address], 01/01/2024 19:18:53 XR, knee, 3 view 2023 024 [email or web address] [facility], [address], [address], [place], [address], 05/03/2024 16:28:09 XR, knee, 3 view 2023 024 [email or web address] [facility], [address], [address], [place], [address], 06/01/2024 08:44:02 Medication Orders lidocaine (PF) 10 mg/mL (1 %) injection solution 2023 024 [id number], [address] [place], [address], 05/03/2024 16:28:09 Patient TargetsNo targets recorded. Patient Instructions Encounter Date Encounter Id Patient Instructions Last Modified By Organization Details Last Modified Time 11/13/2023 [id number] X-rays of the le ft knee were obtained in the [place] office on 11/13/2019 force demonstrates a longitudinal lateral patella fracture [email or web address] Not available 11/13/2023 15:16:13 12/04/2023 [id number] X-rays of the le ft knee were obtained in the [place] office on12/04/2023 demonstrates a longitudinal lateral patella fracture with interval callus [email or web address] Not available 12/04/2023 16:26:11 01/01/2024 [id number] X-rays of the le ft knee obtained on 01/01/2024 demonstrate a lateral facet patella fracture. Not available 01/03/2024 12:11:05 05/03/2024 [id number] X-rays of the le ft knee obtained on 05/03/2024 demonstrate a stable lateral facet patella fracture With interval healing from prior x-rays. No new acute osseous abnormalities. [email or web address] Not available 05/03/2024 12:53:00 05/28/2024 [id number] Imaging: {{RIGHT LEFT*}} knee three view radiographs [...] Details Recorded Time Closed fracture patella, vertical 874757493 Active [address], [place], [address] , [place] [facility], [facility] 4 15:16:02 Pain of left knee region 77874091421076 9 Active [address], [place], [address] , [place] [facility], P 4 16:24:26 Closed fracture of patella 76384051 Active [address], [place], [address] , [place] [facility], P 4 11:11:07 Effusion of joint of left knee 36997239518212 5 Active [address], [place], [address] , [place] [facility], P 4 12:27:10 Pain of knee region 1326769009 Active [address], [place], [address] , [place] [facility], P 4 10:50:13 Problem Notes None recorded. Procedures Surgical History Date Name Laterality Status Provider Name and Address Organization Details Recorded Time 4 MJG Knee Aspiration completed [address], [place], [address], [place] [facility], [facility] 05/03/2024 12:52:32 Tmj repair of joint disc completed Zeny Coombs [facility], P 11/13/2023 14:36:39 Imaging Results None recorded. [...] Updated DateTime 11/13/2023 182.88 cm 22 kg/m2 76907.96 g Zeny Coombs [facility] 11/13/2023 14:35:24 Date Recorded Body height Provider Name an d Address Organization Details Last Updated DateTime 01/01/2024 182.88 cm Yamilka Connelly [facility], P 01/01/2024 16:09:56 Date Recorded Body height Body mass index (BMI) Body weight Provider Name and Address Organization Details Last Updated DateTime 05/03/2024 182.88 cm 22 kg/m2 14340.[address] [place] [facility] 05/03/2024 11:39:58 Date Recorded Body height Provider Name an d Address Organization Details Last Updated DateTime 05/28/2024 182[address] [place] [facility], P 05/28/2024 10:56:18 Social History Question Answer Notes LastModified by Organizat ion Details LastModified Time Tobacco Smoking Status Never Smoker Zeny Mcmullenshantanu damon, [place] [facility], [facility] 11/13/2023 14:35:44 What Is Your Level Of Alcohol Consumption? Occasional [email or web address] Information not available 11/13/2023 How Many Times Per Week Do You Consume Alcohol? Less Than 1 Time Per Week Information not available 11/13/2023 Are You Currently Employed? 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 No [email or web address] Information not available 11/13/2023 Do You Or Have You Ever Used Any Other Forms Of Tobacco Or Nicotine? No [email or web address] Information not available 11/13/2023 Sex: Unknown Functional Status None recorded. Mental Status None recorded. Family History Relationship Description Onset Age of this Age Resolved Age Notes LastModified by Organization Details LastModified Time Father History of hypertension [email or web address] Not available 14:36:29 Mother History of hypertension [email or web address] Not available 14:36:29 Medical History Condition Response Osteopenia Y Hypertension Y Asthma Y Gynecological HistoryNo gynecological history recorded. Obstetrics History GPAL:G 0 P 0 0 0 0 Past Encounters Encounter ID Performer Location Encounter Start Date Encounter Closed Date Diagnosis/Indication Diagnosis SNOMED-CT Code Diagnosis ICD10 Code [id number] Katerine Bacon MD [facility] [address] [facility] [address] [place] [address] 11/13/2023 14:07:24 11/13/2023 15:10:55 Pain of left knee region 0683141466 67138 M25.562 Closed fra cture patella, vertical 343905358 S82.025A [id number] MD MARYAN Huerta [place] [address] [facility] [address] [place] [address] 12/04/2023 15:49:07 12/04/2023 16:25:23 Closed fracture patella, vertical 696819008 S82.025A Pain of le ft knee region 8143729468 72875 M25.562 [id number] MD MARYAN Huerta [place] [address] [facility] [address] [place] [address] 01/01/2024 15:31:22 01/01/2024 16:18:34 Closed fracture of patella 61497519 S82.001D [id number] MD MARYAN Huerta [address] [facility] [place] [address] 05/03/2024 11:23:47 05/03/2024 12:11:29 Closed fracture of patella 76175534 S82.001D Pain of knee region 1003 682080 M25.562 Effusion o f joint of left knee 1726547835 66624 M25.462 [id number] Roque Mckeon MD [facility] [address] [place] [address] 05/28/2024 10:05:08 05/28/2024 10:55:10 Closed fracture patella, vertical 759873218 S82.025A Pain of knee region 1003 719727 M25.562 Health Concerns Section Related Observation LastModified by Organization Detai ls LastModified Time None Recorded Concern Status LastModified by Organization Details LastModified Time None Recorded Advance Directives Directive None Recorded Payers Encounter Date Sequence Insurance Name Policy Number Policy Redd Covered Member ID Redd Member ID Guarantor Name 11/13/2023 1 [place] ([place]) [id number] 1 Lalo Zee [id number] Xenia Zee 12/04/2023 1 [place] ([place]) [id number] 1 Lalo Zee [id number] Xenia Zee 01/01/2024 1 [place] [id number] 1 Lalo Zee [id number] Xenia Zee 05/03/2024 1 [place] [id number] 1 Lalo Zee [id number] Xenia Zee 05/28/2024 1 [place] [id number] 1 Lalo Zee [id number] Xenia Zee Notes Date Note Type [...] 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 Roque Mckeon MD [address], [place], [address], [place] [facility], [facility] 05/28/2024 10:59:29 OBGyn Episode No OBEpisode recorded.
--- OUTSIDE RECORDS SUMMARY | 2024-06-11 11:22 | XMS_ITS | Data Portability ---
Author Organization [place] - [facility] CBO ADMIN Address [address] [facility] [place] [address] Care Team Providers Care Commercial Green Building Architect Name Role Phone JAGJIT SWIFT Kindergarten Instructional Assistant [phone] NORMA MACK Primary Care Provider Assessment Encounter [...] or Hyperparathyroidism. Reviewed her prior labs in [facility] and she has never had elevated PTH [...] today on reviewing all available data in [employer] EHR and in [employer] EHR and reviewing orthopedic notes and discussing in detail. Not available 06/01/2024 19:56:56 Plan of Treatment Reminders Order Date Submit Date Provider Last Modified By Organization Details Last Modified Time Details Appointments OFFICE VISIT 15 2024 04:00P M Not available Not available Not available Lab TSH, serum or plasma 2023 [id number] [facility], [address] [place], [address], 06/09/2024 16:03:23 T4, free, serum 2023 [email or web address] [facility], [address] [place] [address], [address], 06/09/2024 16:03:23 vitamin D, 25-hydro xy, total, serum 2023 024 [id number] [facility], [address] [place], [address], 06/09/2024 16:03:23 PTH (parathy roid hormone) , intact + calcium, serum or plasma 2023 024 [email or web address] [facility], [address] [place], [address], 06/09/2024 16:03:23 Referral None recorded . Procedures None recorded . Surgeries None recorded . Imaging None recorded . Medication Orders None recorded . Patient TargetsNo targets recorded. Patient Instructions Encounter Date Encounter Id Patient Instructions Last Modified By Organization Details Last Modified Time 06/01/2024 [id number] By signing my name below, IAbdullahi, attest [...] Details Recorded Time Postablat loreta hypothyro idism 107072256 Active 2018 Postablati ve hypothyroi dism Not Available [facility] 19:57:16 Graves' disease 546930177 Active 2015 Graves' disease - Overview: s/p radiactive iodine treatment Apr 2014 Not Available [facility] 19:57:16 Hypertens loreta disorder 03971039 Active 2015 Hypertensi on Not Available [facility] 19:57:16 Osteopeni a 967037950 Active 2023 Jagjit Swift MD [address] [place], [address] , [facility] 16:45:44 Vitamin D deficienc y 77800657 Active 2023 Jagjit Swift MD [address] [place], [address] , [facility] 16:46:04 Problem Notes None recorded. Medical [...] Updated DateTime 4 182.9 cm 24.5 kg/m2 51323.2 2 g 96 /min 97 % 97 [...] Diagnosis/Indication Diagnosis SNOMED-CT Code Diagnosis ICD10 Code [id number] Jagjit Swift MD [address], [address] [place] [address] 06/01/2024 16:13:22 06/01/2024 16:51:07 Postablative hypothyroidism 777494276 E89.0 Osteopenia 332217227 M85 .80 Vitamin D deficiency 347 83653 E55.9 Health Concerns Section Related Observation LastModified by Organization Detai ls LastModified Time None Recorded Concern Status LastModified by Organization Details LastModified Time None Recorded Advance Directives Directive None Recorded Payers Encounter Date Sequence Insurance Name Policy Number Policy Redd Covered Member ID Redd Member ID Guarantor Name 06/01/2024 1 [place] [id number] Xenia Zee [id number] Xenia Zee Notes Date Note Type [...] and her HCTZ was discontinued by her professional fee coder.?? She has had SVT and continues to be in A. fib rate controlled and is on propranolol extended release 120 mg daily and on anticoagulation with Eliquis and follows with her professional fee coder every 6 months.?? She has had TFT [...] analysis. 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 06/01/2024 19:57:46 OBGyn Episode No OBEpisode recorded.
--- OUTSIDE RECORDS SUMMARY | 2024-06-11 11:22 | XMS_ITS | Continuity of Care Document ---
Author Organization [place] - [facility] Su[facility] Address [address] [place] [address] Care Team Providers Care Iron Plastic Bullet Maker Name Role Phone NORMA MACK Primary Care [...] programs, weight loss with or without a side guider/electrical cad designer assistance, fashion stylist bracing if desired/tolerated, prescription strength oral anti-inflammatories [...] 3 view 2023 024 [email or web address] [facility], [address], [place], [address], 06/01/2024 08:44:02 Medication Orders None recorded. Patient TargetsNo targets recorded. Patient Instructions Encounter Date Encounter Id Patient Instructions Last Modified By Organization Details Last Modified Time 05/28/2024 [id number] Imaging: {{RIGHT LEFT*}} knee three view radiographs [...] Details Recorded Time Closed fracture patella, vertical 675580412 Active 2023 PB GOFF PA-C [address], [place], [address] , [place] [facility] 4 15:16:02 Pain of left knee region 96349878571975 9 Active 2023 PB GOFF PA-C [address] [address], [place], [address] , [place] [facility], [facility] 4 16:24:26 Closed fracture of patella 16052624 Active 2023 PB GOFF PA-C [address] [address], [place], [address] , [place] [facility], [facility] 4 11:11:07 Effusion of joint of left knee 05367816209867 5 Active 2023 PB GOFF PA-C [address] [address], [place], [address] , [place] [facility], [facility] 4 12:27:10 Pain of knee region 6093809182 Active 2023 Roque Mckeon MD [address] [address], [place], [address] , [place] - [facility], [facility] 4 10:50:13 Problem Notes None recorded. Procedures Surgical History Date Name Laterality Status Provider Name and Address Organization Details Recorded Time 4 MJG Knee Aspiration completed [address] [address], [place], [address], [facility] - [facility], P 05/03/2024 12:52:32 Tmj repair of joint disc completed Zeny Coombs [facility], P 11/13/2023 14:36:39 Imaging Results None recorded. [...] Updated DateTime 05/28/2024 182.88 cm [facility] 05/28/2024 10:56:18 Social History Question Answer Notes LastModified by Organizat ion Details LastModified Time Tobacco Smoking Status Never Smoker Zeny damon, [facility] 11/13/2023 14:35:44 What Is Your Level Of Alcohol Consumption? Occasional [email or web address] Information not available 11/13/2023 How Many Times Per Week Do You Consume Alcohol? Less Than 1 Time Per Week Information not available 11/13/2023 Are You Currently Employed? 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 No [email or web address] Information not available 11/13/2023 Do You Or Have You Ever Used Any Other Forms Of Tobacco Or Nicotine? No [email or web address] Information not available 11/13/2023 Sex: Unknown Functional Status None recorded. Mental Status None recorded. Family History Relationship Description Onset Age of this Age Resolved Age Notes LastModified by Organization Details LastModified Time Father History of hypertension Not available 14:36:29 Mother History of hypertension Not available 14:36:29 Medical History Condition Response Osteopenia Y Hypertension Y Asthma Y Gynecological HistoryNo gynecological history recorded. Obstetrics History GPAL:G 0 P 0 0 0 0 Past Encounters Encounter ID Performer Location Encounter Start Date Encounter Closed Date Diagnosis/Indication Diagnosis SNOMED-CT Code Diagnosis ICD10 Code [id number] MD MARYAN Huerta [address] [facility] [place] [address] 05/03/2024 11:23:47 05/03/2024 12:11:29 Closed fracture of patella 26984820 S82.001D Pain of knee region 1003 309598 M25.562 Effusion o f joint of left knee 3504675548 45517 M25.462 [id number] Roque Mckeon MD [facility] [address] [place] [address] 05/28/2024 10:05:08 05/28/2024 10:55:10 Closed fracture patella, vertical 504792592 S82.025A Pain of knee region 1003 162721 M25.562 Health Concerns Section Related Observation LastModified by Organization Detai ls LastModified Time None Recorded Concern Status LastModified by Organization Details LastModified Time None Recorded Payers Encounter Date Sequence Insurance Name Policy Number Policy Redd Covered Member ID Redd Member ID Guarantor Name 05/28/2024 1 [place] ELI[place] ([place]) [id number] 1 Lalo Zee [id number] Xenia Saadia Notes Date Note Type [...] work. 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 Roque Mckeon MD [address], [place], [address], [place] [facility], [facility] 05/28/2024 10:59:29 OBGyn Episode No OBEpisode recorded.
--- OUTSIDE RECORDS SUMMARY | 2024-06-11 11:22 | XMS_ITS | Continuity of Care Document ---
Author Organization [place] - [facility] Address [address], [address] [place] [address] Care Team Providers Care Digital Director Name Role Phone JAGJIT SWIFT Retail Advisor [phone] NORMA MACK Primary Care Provider Assessment Encounter [...] or Hyperparathyroidism. Reviewed her prior labs in [facility] and she has never had elevated [...] available data in [facility] EHR and in [facility] EHR and reviewing orthopedic notes and discussing in detail. Not available 06/01/2024 19:56:56 Plan of Treatment Reminders Order Date Submit Date Provider Last Modified By Organization Details Last Modified Time Details Appointments OFFICE VISIT 15 2024 04:00P M Not available Not available Not available Lab TSH, serum or plasma 2023 024 [email or web address] [facility], [address] [place] [address], [address], 06/09/2024 16:03:23 T4, free, serum 2023 024 [id number] [facility], [address] [place] [address], [address], 06/09/2024 16:03:23 vitamin D, 25-hydro xy, total, serum 2023 024 [email or web address] [facility], [address] [place], [address], 06/09/2024 16:03:23 PTH (parathy roid hormone) , intact + calcium, serum or plasma 2023 024 [email or web address] [facility], [address] [place] [address], [address], 06/09/2024 16:03:23 Referral None recorded . Procedures None recorded . Surgeries None recorded . Imaging None recorded . Medication Orders None recorded . Patient TargetsNo targets recorded. Patient Instructions Encounter Date Encounter Id Patient Instructions Last Modified By Organization Details Last Modified Time 06/01/2024 [id number] By signing my name below, IAbdullahi, attest [...] Details Recorded Time Postablat loreta hypothyro idism 874302730 Active 2018 Postablati ve hypothyroi dism Not Available [facility] 4 19:57:16 Graves' disease 287789216 Active 2015 Graves' disease - Overview: s/p radiactive iodine treatment Apr 2014 Not Available [facility] 4 19:57:16 Hypertens loreta disorder 73734846 Active 2015 Hypertensi on Not Available [facility] 4 19:57:16 Osteopeni a 132260903 Active 2023 Jagjit Swift MD [address] [place], [address] , [facility] 4 16:45:44 Vitamin D deficienc y 98664067 Active 2023 Jagjit Swift MD [address] [place], [address] , [facility] [employer] [facility] 4 16:46:04 Problem Notes None recorded. [...] Updated DateTime 4 182.9 cm 24.5 kg/m2 29125.2 2 g 96 /min 97 % 97 % 120 mm[Hg] 80 mm[Hg] [facility] 4 16:27:24 Social History None recorded. [...] Diagnosis/Indication Diagnosis SNOMED-CT Code Diagnosis ICD10 Code [id number] Jagjit Swift MD [address], [address] [place] [address] 06/01/2024 16:13:22 06/01/2024 16:51:07 Postablative hypothyroidism 400783418 E89.0 Osteopenia 220730319 M85 .80 Vitamin D deficiency 347 04393 E55.9 Health Concerns Section Related Observation LastModified by Organization Detai ls LastModified Time None Recorded Concern Status LastModified by Organization Details LastModified Time None Recorded Payers Encounter Date Sequence Insurance Name Policy Number Policy Redd Covered Member ID Redd Member ID Guarantor Name 06/01/2024 1 [place] [id number] Xenia Zee [id number] Xenia Zee Notes Date Note Type [...] and her HCTZ was discontinued by her psychiatric secretary.?? She has had SVT and continues to be in A. fib rate controlled and is on propranolol extended release 120 mg daily and on anticoagulation with Eliquis and follows with her psychiatric secretary every 6 months.?? She has had TFT [...] analysis. 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 06/01/2024 19:57:46 OBGyn Episode No OBEpisode recorded.
== END 2024-06-10 11:16 | disposition home or self-care (01) ==
LOC: HO.HOSX 11:15
PROVIDERS: Visit Provider Physician Assistant
DX: M25.561 Pain in right knee (principal); M25.562 Pain in left knee
CPT/HCPCS: 73560; 73562

== ENCOUNTER 2024-06-21 09:55 | Outpatient (RCR) | payer BC, SELFPAY | END 2024-07-19 13:47 | disposition home or self-care (01) | LOC: HO.PT 09:55 | PROVIDERS: PCP Family Medicine; Visit Provider Family Medicine | DX: M25.562 Pain in left knee (principal) | CPT/HCPCS: 97110; 97140; 97161 ==

== ENCOUNTER 2024-06-21 12:52 | Outpatient (REF) | payer BC, SELFPAY ==
--- NOTE | ~2024-06-21 | MR_ITS ---
CLINICAL HISTORY: M17.12 - Unilateral primary osteoarthritis, left knee MR left knee without gadolinium Comparison: Radiographs 06/10/2024 Findings: There is a large osteochondral lesion within the medial femoral condyle measuring larger than 2.2 cm in greatest diameter. There is significant subchondral marrow edema within the medial femoral condyle.. There is marrow edema within the medial tibial plateau without depression with serpiginous linear low T1 and increased T2 signal. Also noted are geodes within the posterior medial aspect of the medial tibial plateau. There is deformity of the posterior horn medial meniscus with diffuse increased signal which extends to the superior articular surface. There is also peripheral tear of the meniscus at the meniscal capsular insertion. There is mild increased signal within the more anterior aspect of the anterior horn. There is diffuse and linear oblique signal within the posterior horn of the lateral meniscus which extends to the inferior articular surface. There is mild diffuse increased signal within the anterior horn lateral meniscus The anterior cruciate ligament is intact. There is increased T2 signal within the femoral attachment of the posterior cruciate ligament which is intact. There is a moderate to large suprapatellar effusion. There is a moderate-sized joint effusion. There is grade 4 chondromalacia patella with patellar cartilage thinning and increased signal, small patellar dorsal osteochondral defects , mild subchondral marrow edema. There is fracture through the lateral facet of the patella versus and/or bipartite patella. There is linear decreased T1 and increased T2 signal within the lateral facet of the patella. There is significant increased T2 signal deep and superficial to the medial collateral ligament. There is increased T2 signal within the medial collateral ligament, complete disruption is not visualized. The lateral collateral ligament is intact There is diffuse edema within the soft tissues and intramuscular edema. There is increased T2 signal within the lateral patellar retinaculum with increased T2 signal deep and superficial to medial patellar retinaculum with no disruption of the retinaculum.. There are no meniscal tears. IMPRESSION: Large osteochondral lesion within the medial femoral condyle with significant subchondral marrow edema findings suspicious for an acute osteochondral fracture with medial femoral condyle bone contusion can not exclude subacute or chronic osteochondral fracture and marrow edema secondary to and/or reactive changes Bone contusion likely subchondral fracture without depression medial tibial plateau also degenerative changes with geodes within the posterior aspect medial tibial plateau [id number] suprapatellar effusion and moderate joint effusion, can not exclude infected fluid collections Likely partial tear of the posterior cruciate ligament at the femoral attachment no MRI evidence for complete tear Significant meniscal degeneration with findings suspicious for tear of the posterior horn medial meniscus, peripheral tear of the anterior horn with meniscal capsular injury, significant degeneration likely tear of the posterior horn lateral meniscus Grade 4 chondromalacia patella, and bipartite patella versus nondisplaced fracture lateral patellar facet correlate clinically, comparison to older radiographs if available is recommended. Degeneration lateral retinaculum versus partial tear Findings suspicious for grade 2 medial collateral ligament partial tear Diffuse soft tissue and intramuscular edema which may be posttraumatic can not exclude infectious /inflammatory process This document has been electronically signed by: Matt Escalante MD on 06/22/2024 09:20:17
--- OUTSIDE RECORDS SUMMARY | 2024-06-21 12:58 | XMS_ITS | Data Portability ---
Author Organization [place] - [facility] CBO ADMIN Address [address] [place] [address] Care Team Providers Care Patented Hogshead Assembler Name Role Phone JAGJIT SWIFT Document Processor [phone] NORMA MACK Primary Care Provider Assessment Encounter [...] or Hyperparathyroidism. Reviewed her prior labs in [facility] and she has never had elevated PTH [...] today on reviewing all available data in [facility] EHR and in [employer] EHR and reviewing orthopedic notes and discussing in detail. Not available 06/01/2024 19:56:56 Plan of Treatment Reminders Order Date Submit Date Provider Last Modified By Organization Details Last Modified Time Details Appointments OFFICE VISIT 15 2024 04:00P M Not available Not available Not available Lab TSH, serum or plasma 2023 [id number] [facility], [address] [place], [address], 06/09/2024 16:03:23 T4, free, serum 2023 [email or web address] [facility], [address] [place] [address], [address], 06/09/2024 16:03:23 vitamin D, 25-hydro xy, total, serum 2023 024 [id number] [facility], [address] [place], [address], 06/09/2024 16:03:23 PTH (parathy roid hormone) , intact + calcium, serum or plasma 2023 024 [email or web address] [facility], [address] [place], [address], 06/09/2024 16:03:23 Referral None recorded . Procedures None recorded . Surgeries None recorded . Imaging None recorded . Medication Orders None recorded . Patient TargetsNo targets recorded. Patient Instructions Encounter Date Encounter Id Patient Instructions Last Modified By Organization Details Last Modified Time 06/01/2024 [id number] By signing my name below, IAbdullahi, attest [...] Details Recorded Time Postablat loreta hypothyro idism 538689773 Active 2018 Postablati ve hypothyroi dism Not Available [facility] 19:57:16 Graves' disease 920506138 Active 2015 Graves' disease - Overview: s/p radiactive iodine treatment Apr 2014 Not Available [facility] 19:57:16 Hypertens loreta disorder 25225703 Active 2015 Hypertensi on Not Available [facility] 19:57:16 Osteopeni a 486671755 Active 2023 Jagjit Swift MD [address] [place], [address] , [facility] 16:45:44 Vitamin D deficienc y 46011299 Active 2023 Jagjit Swift MD [address] [place], [address] , [facility] 16:46:04 Problem Notes None recorded. Medical [...] Updated DateTime 4 182.9 cm 24.5 kg/m2 58821.2 2 g 96 /min 97 % 97 % 120 mm[Hg] 80 mm[Hg] [facility] 4 16:27:24 Social History None recorded. [...] Diagnosis/Indication Diagnosis SNOMED-CT Code Diagnosis ICD10 Code [id number] Jagjit Swift MD [address], [address] [place] [address] 06/01/2024 16:13:22 06/01/2024 16:51:07 Postablative hypothyroidism 819578368 E89.0 Osteopenia 170402287 M85 .80 Vitamin D deficiency 347 58775 E55.9 Health Concerns Section Related Observation LastModified by Organization Detai ls LastModified Time None Recorded Concern Status LastModified by Organization Details LastModified Time None Recorded Advance Directives Directive None Recorded Payers Encounter Date Sequence Insurance Name Policy Number Policy Redd Covered Member ID Redd Member ID Guarantor Name 06/01/2024 1 [place] [id number] Xenia Zee [id number] Xenia Zee Notes Date Note Type [...] and her HCTZ was discontinued by her aerial photographer.?? She has had SVT and continues to be in A. fib rate controlled and is on propranolol extended release 120 mg daily and on anticoagulation with Eliquis and follows with her aerial photographer every 6 months.?? She has had TFT [...] analysis. 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 06/01/2024 19:57:46 OBGyn Episode No OBEpisode recorded.
== END 2024-06-21 12:53 | disposition home or self-care (01) ==
LOC: HO.MRI 12:52
PROVIDERS: Visit Provider Physician Assistant
DX: M17.12 Unilateral primary osteoarthritis, left knee (principal); S82.002A Unspecified fracture of left patella, initial encounter for closed fracture; W19.XXXA Unspecified fall, initial encounter
CPT/HCPCS: 73721

== ENCOUNTER → 2024-06-21 13:02 | Outpatient (BNV) | payer BC, SELFPAY | PROVIDERS: Visit Provider Radiology Diagnostic Radiology | DX: M93.262 Osteochondritis dissecans, left knee (principal); M25.462 Effusion, left knee; S83.522A Sprain of posterior cruciate ligament of left knee, initial encounter; M22.42 Chondromalacia patellae, left knee | CPT/HCPCS: 73721 ==

== ENCOUNTER 2024-06-28 14:03 | Outpatient (AMB) | payer BC, SELFPAY ==
--- NOTE | 2024-06-28 14:06 | A.OFFVIS_ITS ---
Vital Signs 06/28/24 14:09 Height 6 ft Weight 165 lb BMI 22.4 Intake Visit Reasons: OV, L knee MRI review Intake Note: Xenia is a 63 year old female who presents today for a Left Knee MRI Review. On 11/07/23 while in [place] she tripped on a rug and landed on the left knee. Patient reports that the knee has felt the same since the last visit. She is taking Advil PRN for her pain, which is not helping. She was seen at another clinic s/p injury, who aspirated the knee on 05/03/24. IMPRESSION: Large osteochondral lesion within the medial femoral condyle with significant subchondral marrow edema findings suspicious for an acute osteochondral fracture with medial femoral condyle bone contusion can not exclude subacute or chronic osteochondral fracture and marrow edema secondary to and/or reactive changes Bone contusion likely subchondral fracture without depression medial tibial plateau also degenerative changes with geodes within the posterior aspect medial tibial plateau Mkzdfbry-if-yhujt suprapatellar effusion and moderate joint effusion, can not exclude infected fluid collections Likely partial tear of the posterior cruciate ligament at the femoral attachment no MRI evidence for complete tear Significant meniscal degeneration with findings suspicious for tear of the posterior horn medial meniscus, peripheral tear of the anterior horn with meniscal capsular injury, significant degeneration likely tear of the posterior horn lateral meniscus Grade 4 chondromalacia patella, and bipartite patella versus nondisplaced fracture lateral patellar facet correlate clinically, comparison to older radiographs if available is recommended. Degeneration lateral retinaculum versus partial tear Findings suspicious for grade 2 medial collateral ligament partial tear Diffuse soft tissue and intramuscular edema which may be posttraumatic can not exclude infectious /inflammatory process Allergies No Known Allergies Allergy (Verified 06/10/24 10:40) HPI HPI OV, L knee MRI review: Details: Xenia is a 63-year-old woman who injured her left knee about 8 months ago ago in a fall at [employer]. she was seen at an orthopedic group and diagnosed with a lateral patella fracture that was treated nonoperatively. That has improved but her medial-sided knee pain has progressively worsened. Now she is limping. She has an assistive device. She can not walk extended distances in her pain worsens throughout the day. Most of the pain localized to the medial aspect of her left knee. She has also had recurrent swelling and effusions. She has had it drained in the past. She is currently on Eliquis. [facility] Medical History (Updated 06/28/24 @ 15:16 by Oumar Harrington MD) Left patella fracture Social History (Updated 06/10/24 @ 10:42 by Polo Pizarro) Alcohol intake: current Alcohol intake frequency: holidays/special occasions only Patient Tobacco Use Status: Never used Tobacco Current occupational status: employed Physical Exam Vital Signs: BMI result Body Mass Index 22.4 Extrem Other: Mild to moderate effusion. No patellar tenderness to palpation but her medial compartment is tender to palpation along the medial femoral condyle with a negative Nupur's. Her range of motion is 0-125 degrees. She is stable to varus and valgus stress. Results Reviewed Results Reviewed: I personally reviewed the MR images. Large osteochondral lesion within the medial femoral condyle with significant subchondral marrow edema findings suspicious for an acute osteochondral fracture with medial femoral condyle bone contusion can not exclude subacute or chronic osteochondral fracture and marrow edema secondary to and/or reactive changes Bone contusion likely subchondral fracture without depression medial tibial plateau also degenerative changes with geodes within the posterior aspect medial tibial plateau Xqttdoro-kl-folna suprapatellar effusion and moderate joint effusion, can not exclude infected fluid collections Likely partial tear of the posterior cruciate ligament at the femoral attachment no MRI evidence for complete tear Significant meniscal degeneration with findings suspicious for tear of the posterior horn medial meniscus, peripheral tear of the anterior horn with meniscal capsular injury, significant degeneration likely tear of the posterior horn lateral meniscus Grade 4 chondromalacia patella, and bipartite patella versus nondisplaced fracture lateral patellar facet correlate clinically, comparison to older radiographs if available is recommended. Degeneration lateral retinaculum versus partial tear Findings suspicious for grade 2 medial collateral ligament partial tear Diffuse soft tissue and intramuscular edema which may be posttraumatic can not exclude infectious /inflammatory process Assessment & Plan Assessment & Plan (1) Internal derangement of left knee: Code(s): M23.92 - Unspecified internal derangement of left knee Category: Medical Plan: This is a 63-year-old woman with several problems in her left knee. The most obvious 1 being a osteochondral lesion of her medial femoral condyle with associated subchondral edema. There is also likely posterior cruciate ligament tear, MCL sprain and a patella fracture that is nondisplaced. She is having worsening pain. I discussed treatment options including surgery and nonsurgical treatment options. My opinion is that at this point she should not go for extended periods of time while walking on her left knee and we should consider an unloading brace to try to minimize reaction forces in the medial compartment. I think this will help with her pain. She may indeed need surgery for this in the future but I would likely recommend knee replacement and it would likely be no sooner than 6 months. I suspect however that she will improve with conservative management focused on limiting inflammation. She is on Eliquis but I think she will do fine with Celebrex and this was written for her. I will see her back in 4 weeks' time and I wrote her a note to abstain from work for 4 weeks. (2) Osteochondral defect of femoral condyle: Code(s): M95.8 - Other specified acquired deformities of musculoskeletal system Category: Medical Plan: (3) Osteoarthritis of left knee: Code(s): M17.12 - Unilateral primary osteoarthritis, left knee Category: Medical Plan: Medications: New celecoxib (Celebrex) 200 mg PO DAILY 30 caps 2RF Coding Level of Care Code Est Pt Level 4 (62262) Diagnoses Internal derangement of left knee M23.92 Osteochondral defect of femoral condyle M95.8 Osteoarthritis of left knee M17.12
[2024-06-28 14:09] VITALS: BMI 22.4
--- OUTSIDE RECORDS SUMMARY | 2024-06-28 16:23 | XMS_ITS | Continuity of Care Document ---
Author Organization [place] [facility] Suzi Munoz [facility]ONE [place] Address [address] [place] [address] Care Team Providers Care Rubbing Bed Operator Name Role Phone NORMA MACK Primary Care Provider [phone] NORMA MACK Referring Provider Assessment Encounter Date Assessment Date Assessment LastModified by Organization Details LastModified Time 05/03/2024 05/03/2024 She elected to move forward [...] Patient was seen and evaluated by Pb Goff PA-C in indirect conjunction with Documenting Provider: Katerine Bacon MD He/She agrees with history, physical examination, tests/diagnost ic imaging, and treatment plan Not available 05/03/2024 12:51:59 Plan of Treatment Reminders Order Date Submit Date Provider Last Modified By Organization Details Last Modified Time Details Appointments ESTABLISH ED/AONE REFERRAL 2024 04:15P aMida Goff PA-C Not available Not available Not available Lab crystals, synovial fluid 2023 024 [email or web address] Not available 05/10/2024 09:33:46 cell count w/ diff, synovial fluid 2023 024 Not available 05/10/2024 09:33:46 culture, synovial fluid 11/2023 Not available 05/10/2024 09:33:46 Referral None recorded. Procedures None recorded. Surgeries None recorded. Imaging XR, knee, 3 view 2023 [email or web address] [facility], [address], [place], [address], 05/03/2024 16:28:09 Medication Orders lidocaine (PF) 10 mg/mL (1 %) injection solution 2023 [id number], [address], [place], [address], 05/03/2024 16:28:09 Patient TargetsNo targets recorded. Patient Instructions Encounter Date Encounter Id Patient Instructions Last Modified By Organization Details Last Modified Time 05/03/2024 [id number] X-rays of the left knee obtained on 05/03/2024 demonstrate a stable lateral facet patella fracture With interval healing from prior x-rays. No new acute osseous abnormalities. [email or web address] Not available 05/03/2024 12:53:00 Reason for Referral None Reported. Problems Name Problem SNOMED Code Status Onset Date Resolution Date Notes Provider Name and Address Organization Details Recorded Time Closed fracture patella, vertical 038545579 Active 2023 PB GOFF PA-C [address], [place], [address] , [place] [facility], P 4 15:16:02 Pain of left knee region 53179402411596 9 Active 2023 PB GOFF PA-C [address], [place], [address] , [place] [facility], P 4 16:24:26 Closed fracture of patella 16825923 Active 2023 PB GOFF PA-C [address], [place], [address] , [place] [facility], P 4 11:11:07 Effusion of joint of left knee 40253354964128 5 Active 2023 PB GOFF PA-C [address], [place], [address] , [place] [facility], P 4 12:27:10 Pain of knee region 9497639075 Active 2023 Roque Mckeon MD [address], [place], [address] , [place] [facility], P 4 10:50:13 Problem Notes None recorded. Procedures Surgical History Date Name Laterality Status Provider Name and Address Organization Details Recorded Time 4 MJG Knee Aspiration completed PB GOFF PA-C [address], [place], [address], [facility], [facility] 05/03/2024 12:52:32 Tmj repair of joint disc completed Zeny Coombs [place] [facility], [facility] 11/13/2023 14:36:39 Imaging Results None recorded. [...] Updated DateTime 05/03/2024 182.88 cm 22 kg/m2 95855.[address] [place] [facility], 05/03/2024 11:39:58 Social History Question Answer Notes LastModified by Organizat ion Details LastModified Time Tobacco Smoking Status Never Smoker Zeny Coombs [place], [place] [facility], [facility] 11/13/2023 14:35:44 What Is Your Level Of Alcohol Consumption? Occasional [email or web address] Information not available 11/13/2023 How Many Times Per Week Do You Consume Alcohol? Less Than 1 Time Per Week [email or web address] Information not available 11/13/2023 Are You Currently Employed? 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 No [email or web address] Information not available 11/13/2023 Do You Or Have You Ever Used Any Other Forms Of Tobacco Or Nicotine? No [email or web address] Information not available 11/13/2023 Sex: Unknown Functional Status None recorded. Mental Status None recorded. Family History Relationship Description Onset Age of this Age Resolved Age Notes LastModified by Organization Details LastModified Time Father History of hypertension [email or web address] Not available 14:36:29 Mother History of hypertension [email or web address] Not available 14:36:29 Medical History Condition Response Osteopenia Y Hypertension Y Asthma Y Gynecological HistoryNo gynecological history recorded. Obstetrics History GPAL:G 0 P 0 0 0 0 Past Encounters Encounter ID Performer Location Encounter Start Date Encounter Closed Date Diagnosis/Indication Diagnosis SNOMED-CT Code Diagnosis ICD10 Code Diagnosis Note [id number] MD MARYAN Huerta [address] [facility] [place] [address] 05/03/2024 11:23:47 05/03/2024 12:11:29 Closed fracture of patella 54260552 S82.001D Additional diagnosis detail: Closed nondisplac ed fracture of right patella with routine healing, unspecifie d fracture morphology , subsequent encounter Pain of knee region 1003 533712 M25.562 Effusion o f joint of left knee 9691890184 58788 M25.462 Health Concerns Section Related Observation LastModified by Organization Detai ls LastModified Time None Recorded Concern Status LastModified by Organization Details LastModified Time None Recorded Payers Encounter Date Sequence Insurance Name Policy Number Policy Redd Covered Member ID Redd Member ID Guarantor Name 05/03/2024 1 [place] [id number] 1 Lalo Zee [id number] Xenia Zee Notes Date Note Type Note Provider Name and Address Organization Details Recorded Time 05/03/2024 text/html Date of injury: 11/06/2023 Xenia [...] 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 PB GOFF PA-C [address], [place], [address], [place] [facility] 05/03/2024 12:53:23 OBGyn Episode No OBEpisode recorded.
--- OUTSIDE RECORDS SUMMARY | 2024-06-28 16:23 | XMS_ITS | Data Portability ---
Author Organization [place] [facility] Suzi Munoz [facility] [place] Address [address] [place] [address] Care Team Providers Care Bacteriologist Soil Name Role Phone NORMA MACK Primary Care Provider [phone] NORMA MACK Referring Provider Assessment Encounter Date [...] / rigid orthosis to improve their function. [email or web address] Not available 11/13/2023 15:16:29 12/04/2023 12/04/2023 Her vertical pat arely fracture is healing very well. Continue to manage this nonoperatively. Continue in the core flex hinged brace. She can continue with her lunchtime walks. She would like to defer physical therapy at this time. Plan to follow-up in 3 to 4 weeks for repeat assessment and repeat left knee x-rays [email or web address] Not available 12/04/2023 16:25:57 01/01/2024 01/01/2024 She [...] physical examination, tests/diagnostic imaging, and treatment plan [email or web address] Not available 05/03/2024 12:51:59 05/28/2024 05/28/2024 The [...] programs, weight loss with or without a advertising intern/email manager assistance, steward/stewardess railroad dining car bracing if desired/tolerated, prescription strength oral anti-inflammatories [...] available Lab crystals, synovial fluid 2023 024 [email or web address] Not available 05/10/2024 09:33:46 cell count w/ diff, synovial fluid 2023 024 [email or web address] Not available 05/10/2024 09:33:46 culture, synovial fluid 2023 024 [email or web address] Not available 05/10/2024 09:33:46 Referral orthopedi c physical therapist referral - Other Comments: 2023 024 wendi Ann Not available 05/28/2024 10:55:10 Procedures None recorded. Surgeries None recorded. Imaging XR, knee, 3 view 2023 024 [email or web address] [facility], [address], [place], [address], 11/13/2023 20:58:52 XR, knee, 3 view 2023 024 [email or web address] [facility], [address], [address], [place], [address], 12/05/2023 10:31:56 XR, knee, 3 view 2023 024 [email or web address] [facility], [address], [address], [place], [address], 01/01/2024 19:18:53 XR, knee, 3 view 2023 024 [email or web address] [facility], [address], [address], [place], [address], 05/03/2024 16:28:09 XR, knee, 3 view 2023 024 [email or web address] [facility], [address], [address], [place], [address], 06/01/2024 08:44:02 Medication Orders lidocaine (PF) 10 mg/mL (1 %) injection solution 2023 024 [email or web address] [id number], [address] [place], [address], 05/03/2024 16:28:09 Patient TargetsNo targets recorded. Patient Instructions Encounter Date Encounter Id Patient Instructions Last Modified By Organization Details Last Modified Time 11/13/2023 [id number] X-rays of the le ft knee were obtained in the [place] office on 11/13/2019 force demonstrates a longitudinal lateral patella fracture [email or web address] Not available 11/13/2023 15:16:13 12/04/2023 [id number] X-rays of the le ft knee were obtained in the [place] office on12/04/2023 demonstrates a longitudinal lateral patella fracture with interval callus [email or web address] Not available 12/04/2023 16:26:11 01/01/2024 [id number] X-rays of the le ft knee obtained on 01/01/2024 demonstrate a lateral facet patella fracture. Not available 01/03/2024 12:11:05 05/03/2024 [id number] X-rays of the le ft knee obtained on 05/03/2024 demonstrate a stable lateral facet patella fracture With interval healing from prior x-rays. No new acute osseous abnormalities. [email or web address] Not available 05/03/2024 12:53:00 05/28/2024 [id number] Imaging: {{RIGHT LEFT*}} knee three view radiographs [...] Details Recorded Time Closed fracture patella, vertical 802025459 Active [address], [place], [address] , [place] [facility], [facility] 4 15:16:02 Pain of left knee region 19699300122385 9 Active [address], [place], [address] , [place] [facility], P 4 16:24:26 Closed fracture of patella 38571422 Active [address], [place], [address] , [place] [facility], P 4 11:11:07 Effusion of joint of left knee 94938007149126 5 Active [address], [place], [address] , [place] [facility], P 4 12:27:10 Pain of knee region 8333723256 Active [address], [place], [address] , [place] [facility], P 4 10:50:13 Problem Notes None recorded. Procedures Surgical History Date Name Laterality Status Provider Name and Address Organization Details Recorded Time 4 MJG Knee Aspiration completed [address], [place], [address], [place] [facility], [facility] 05/03/2024 12:52:32 Tmj repair of joint disc completed Zeny Coombs [facility] 11/13/2023 14:36:39 Imaging Results None recorded. [...] Updated DateTime 11/13/2023 182.88 cm 22 kg/m2 68588.96 g Zeny Coombs [facility] 11/13/2023 14:35:24 Date Recorded Body height Provider Name an d Address Organization Details Last Updated DateTime 01/01/2024 182.88 cm Yamilka Connelly [facility] P 01/01/2024 16:09:56 Date Recorded Body height Body mass index (BMI) Body weight Provider Name and Address Organization Details Last Updated DateTime 05/03/2024 182.88 cm 22 kg/m2 [address]642.[address] [facility] 05/03/2024 11:39:58 Date Recorded Body height Provider Name an d Address Organization Details Last Updated DateTime 05/28/[address] [facility], P 05/28/2024 10:56:18 Social History Question Answer Notes LastModified by Organizat ion Details LastModified Time Tobacco Smoking Status Never Smoker Zeny Mcmullenshantanu [place], [place] [facility], P 11/13/2023 14:35:44 What Is Your Level Of Alcohol Consumption? Occasional [email or web address] Information not available 11/13/2023 How Many Times Per Week Do You Consume Alcohol? Less Than 1 Time Per Week [email or web address] Information not available 11/13/2023 Are You Currently Employed? 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 No Information not available 11/13/2023 Do You Or Have You Ever Used Any Other Forms Of Tobacco Or Nicotine? No [email or web address] Information not available 11/13/2023 Sex: Unknown Functional Status None recorded. Mental Status None recorded. Family History Relationship Description Onset Age of this Age Resolved Age Notes LastModified by Organization Details LastModified Time Father History of hypertension [email or web address] Not available 14:36:29 Mother History of hypertension [email or web address] Not available 14:36:29 Medical History Condition Response Osteopenia Y Hypertension Y Asthma Y Gynecological HistoryNo gynecological history recorded. Obstetrics History GPAL:G 0 P 0 0 0 0 Past Encounters Encounter ID Performer Location Encounter Start Date Encounter Closed Date Diagnosis/Indication Diagnosis SNOMED-CT Code Diagnosis ICD10 Code Diagnosis Note [id number] MD MARYAN Huerta [facility] [address] [facility] [address] [place] [address] 11/13/2023 14:07:24 11/13/2023 15:10:55 Pain of left knee region 2056312909 69254 M25.562 Additional diagnosis detail: Left knee pain, unspecifie d chronicity Closed fra cture patella, vertical 792432332 S82.025A Additional diagnosis detail: Closed nondisplac ed longitudin al fracture of left patella, initial encounter [id number] MD MARYAN Huerta [place] [address] [facility] [address] [place] [address] 12/04/2023 15:49:07 12/04/2023 16:25:23 Closed fracture patella, vertical 593130997 S82.025A Pain of le ft knee region 3016882852 05548 M25.562 Additional diagnosis detail: Left knee pain, unspecifie d chronicity [id number] MD MARYAN Huerta [place] [address] [address] 01/01/2024 15:31:22 01/01/2024 16:18:34 Closed fracture of patella 77491741 S82.001D Additional diagnosis detail: Closed nondisplac ed fracture of right patella with routine healing, unspecifie d fracture morphology , subsequent encounter [id number] MD MARYAN Huerta [address] [facility] [place] [address] 05/03/2024 11:23:47 05/03/2024 12:11:29 Closed fracture of patella 81549543 S82.001D Additional diagnosis detail: Closed nondisplac ed fracture of right patella with routine healing, unspecifie d fracture morphology , subsequent encounter Pain of knee region 1003 082071 M25.562 Effusion o f joint of left knee 4734724032 51981 M25.462 [id number] MD MARYAN Rhodes [facility] [address] [place] [address] 05/28/2024 10:05:08 05/28/2024 10:55:10 Closed fracture patella, vertical 410477420 S82.025A Pain of knee region 1003 901284 M25.562 Health Concerns Section Related Observation LastModified by Organization Detai ls LastModified Time None Recorded Concern Status LastModified by Organization Details LastModified Time None Recorded Advance Directives Directive None Recorded Payers Encounter Date Sequence Insurance Name Policy Number Policy Redd Covered Member ID Redd Member ID Guarantor Name 11/13/2023 1 [place] [id number] 1 Lalo Zee [id number] 63 Xenia Zee 12/04/2023 1 [place] [id number] 1 Lalo Zee [id number] Xenia Saadia 01/01/2024 1 [place] [id number] 1 Lalo Zee [id number] Xenia Saadia 05/03/2024 1 [place] [id number] 1 Lalo Zee [id number] 63 Xenia Saadia 05/28/2024 1 [place] [id number] 1 Lalo Zee [id number] 63 Xenia Zee Notes Date Note Type [...] 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. 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. 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. 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. 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. 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. Roque Mckeon MD [address], [place], [address], [place] [facility] 05/28/2024 10:59:29 OBGyn Episode No OBEpisode recorded.
--- OUTSIDE RECORDS SUMMARY | 2024-06-28 16:23 | XMS_ITS | Continuity of Care Document ---
Author Organization [place] [facility] Suzi Munoz [facility] Address [address] [place] [address] Care Team Providers Care Ear Specialist Name Role Phone NORMA MACK Primary Care [...] programs, weight loss with or without a stator winder/leg man assistance, production department supervisor bracing if desired/tolerated, prescription strength oral anti-inflammatories [...] 3 view 2023 024 [email or web address] [facility], [address], [place], [address], 06/01/2024 08:44:02 Medication Orders None recorded. Patient TargetsNo targets recorded. Patient Instructions Encounter Date Encounter Id Patient Instructions Last Modified By Organization Details Last Modified Time 05/28/2024 [id number] Imaging: {{RIGHT LEFT*}} knee three view radiographs [...] Details Recorded Time Closed fracture patella, vertical 239820217 Active 2023 PB GOFF PA-C [address], [place], [address] , [place] [facility], P 4 15:16:02 Pain of left knee region 70637721127820 9 Active 2023 PB GOFF PA-C [address] [address], [place], [address] , [place] [facility], P 4 16:24:26 Closed fracture of patella 31796545 Active 2023 PB GOFF PA-C [address] [address], [place], [address] , [place] [facility], P 4 11:11:07 Effusion of joint of left knee 82808031866631 5 Active 2023 PB GOFF PA-C [address] [address], [place], [address] , [place] [facility], P 4 12:27:10 Pain of knee region 7181984908 Active 2023 Roque Mckeon MD [address] [address], [place], [address] , [place] [facility], P 4 10:50:13 Problem Notes None recorded. Procedures Surgical History Date Name Laterality Status Provider Name and Address Organization Details Recorded Time 4 MJG Knee Aspiration completed [address] [address], [place], [address], [facility], P 05/03/2024 12:52:32 Tmj repair of joint disc completed Zeny Coombs [facility], P 11/13/2023 14:36:39 Imaging Results None recorded. [...] Updated DateTime 05/28/2024 182.88 cm [place] [facility] 05/28/2024 10:56:18 Social History Question Answer Notes LastModified by Organizat ion Details LastModified Time Tobacco Smoking Status Never Smoker Zeny damon, [facility] 11/13/2023 14:35:44 What Is Your Level Of Alcohol Consumption? Occasional [email or web address] Information not available 11/13/2023 How Many Times Per Week Do You Consume Alcohol? Less Than 1 Time Per Week [email or web address] Information not available 11/13/2023 Are You Currently Employed? 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 No [email or web address] Information not available 11/13/2023 Do You Or Have You Ever Used Any Other Forms Of Tobacco Or Nicotine? No [email or web address] Information not available 11/13/2023 Sex: Unknown Functional Status None recorded. Mental Status None recorded. Family History Relationship Description Onset Age of this Age Resolved Age Notes LastModified by Organization Details LastModified Time Father History of hypertension [email or web address] Not available 14:36:29 Mother History of hypertension [email or web address] Not available 14:36:29 Medical History Condition Response Osteopenia Y Hypertension Y Asthma Y Gynecological HistoryNo gynecological history recorded. Obstetrics History GPAL:G 0 P 0 0 0 0 Past Encounters Encounter ID Performer Location Encounter Start Date Encounter Closed Date Diagnosis/Indication Diagnosis SNOMED-CT Code Diagnosis ICD10 Code Diagnosis Note [id number] MD MARYAN Huertayuriy [address] [place] [address] 05/03/2024 11:23:47 05/03/2024 12:11:29 Closed fracture of patella 55961002 S82.001D Additional diagnosis detail: Closed nondisplac ed fracture of right patella with routine healing, unspecifie d fracture morphology , subsequent encounter Pain of knee region 1003 663865 M25.562 Effusion o f joint of left knee 0923384133 35584 M25.462 [id number] Roque Mckeon MD [facility] [address] [place] [phone] 05/28/2024 10:05:08 05/28/2024 10:55:10 Closed fracture patella, vertical 568429744 S82.025A Pain of knee region 1003 505593 M25.562 Health Concerns Section Related Observation LastModified by Organization Detai ls LastModified Time None Recorded Concern Status LastModified by Organization Details LastModified Time None Recorded Payers Encounter Date Sequence Insurance Name Policy Number Policy Redd Covered Member ID Redd Member ID Guarantor Name 05/28/2024 1 [place] [id number] 1 Lalo Zee [id number] Xenia Munozire Notes Date Note Type Note Provider Name [...] 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 Roque Mckeon MD [address], [place], [address], [place] [facility], [facility] 05/28/2024 10:59:29 OBGyn Episode No OBEpisode recorded.
== END 2024-06-28 15:18 | disposition home or self-care (01) ==
PROVIDERS: Visit Provider Orthopaedic Surgery
DX: M23.92 Unspecified internal derangement of left knee (principal); M95.8 Other specified acquired deformities of musculoskeletal system; M17.12 Unilateral primary osteoarthritis, left knee
CPT/HCPCS: 99214

== ENCOUNTER 2024-08-23 13:54 | Outpatient (AMB) | payer BC, SELFPAY ==
--- NOTE | 2024-08-23 14:07 | MHC.OFFVIS ---
Intake Visit Reasons: OV-LT knee follow up 4 WKS Intake Note: Xenia is a 64 year old female who presents today for a follow up of her left knee osteochondral lesion of her medial femoral condyle with associated subchondral edema. There is also likely posterior cruciate ligament tear, MCL sprain and a patella fracture that is nondisplaced. At her last visit a medial unloading brace was ordered, celebrex was sent and it was recommended that she do no prolonged walking. Allergies No Known Allergies Allergy (Verified 08/23/24 14:07) HPI HPI OV-LT knee follow up 4 WKS: Details: Xenia is a 64 year old female who presents today for a follow up of her left knee osteochondral lesion of her medial femoral condyle with associated subchondral edema. There is also likely posterior cruciate ligament tear, MCL sprain and a patella fracture that is nondisplaced. At her last visit a medial unloading brace was ordered, celebrex was sent and it was recommended that she do no prolonged walking. She has been feeling better but still with occasional pain and is concerned with her ability to navigate stairs. 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 COUNTS INCLUDE 234 BEDS AT [facility] Medical History (Updated 06/28/24 @ 15:16 by Oumar Harrington MD) Left patella fracture Social History (Updated 06/10/24 @ 10:42 by Polo Pizarro) Alcohol intake: current Alcohol intake frequency: holidays/special occasions only Patient Tobacco Use Status: Never used Tobacco Current occupational status: employed Physical Exam Extrem Other: No effusion there is mild discomfort with palpation of the MFC and with Steinmen's but mild and much improved from prior Assessment & Plan Assessment & Plan (1) Osteochondral defect of femoral condyle: Code(s): M95.8 - Other specified acquired deformities of musculoskeletal system Category: Medical Plan: Effusion has improved and patient feels better. May increase exercise toleratnce and RTW 2-3 days a week with stairs as tolerated. Will f/u 2 mo. (2) Internal derangement of left knee: Code(s): M23.92 - Unspecified internal derangement of left knee Category: Medical Plan: Stable and feels well. No treatment currently warranted Coding Level of Care Code Est Pt Level 3 (97911) Diagnoses Osteochondral defect of femoral condyle M95.8 Internal derangement of left knee M23.92
--- OUTSIDE RECORDS SUMMARY | 2024-08-23 16:27 | XMS_ITS | Encounter Summary ---
Author Organization [facility] Address [address] [place] [address] Care Team Providers Care [place] Acre[place] Measurer Name Role Phone Franklyn Vaca MD Primary Care Provider [phone] Patrick Woody MD Primary Care Provider [phone] Encounter Details Date Type Department Care Team (Late st Contact Info) Description 11/21/2022 Scanned Document [address] [place] [phone] Provider, Generic Social History Tobacco Use Types Packs/Day Years Used Date Smoking Tobacco: Never Assessed Sex and Gender Information Value Date Recorded Sex Assigned at Female 11/28/2022 2:42 PM EDT Gender Identity Female 11/28/2022 2:42 PM EDT Sexual Orientation Heterosexual (straight) 11/28 2:42 PM EDT documented as of this encounter Plan of Treatment Not on file documented as of this encounter Procedures Procedure Name Priority Date/Time Associated Diagnosis Comments HX OUTSIDE ORDER 11/21/2022 documented in this encounter Results * HX OUTSIDE ORDER (11/21/2022) Narrative 11/21/2022 Ordered by an unspecified provider. Generic Provider HX AMB PROCEDURES documented in this encounter Visit Diagnoses Not on filedocumented in this encounter Care Teams [place] Measurer Relationship Specialty Start Date End Date Franklyn Vaca MD [address] [place] [id number] PCP - General Internal Medicine 11/06/17 11/27/22 Patrick Woody MD [address] [place] [address] PCP - General Family Medicine 11/28/22 documented as of this encounter
--- OUTSIDE RECORDS SUMMARY | 2024-08-23 16:27 | XMS_ITS | Encounter Summary ---
Author Organization [facility] [place] [address] Care Team Providers Care Return To Service Inspector Name Role Phone Patrick Woody MD Primary Care Provider [phone] Encounter Details Date Type Department Care Team (Latest Contact Info) Description 04/21/2024 3:31 PM EDT Hospital Encounter TH HISTORIC ENCOUNTERS EASTERN CONVERSION ONLY Encounter for screening for cardiovascular disorders Social History Tobacco Use Types Packs/Day Years Used Date Smoking Tobacco: Some Days Smokeless Tobacco: Never Alcohol Use Standard Drinks/Week Comments No 0 (1 standard drink = 0.6 oz pur e alcohol) Comments Unknown Sex and Gender Information Value Date Recorded Sex Assigned at Not on file Legal Sex Female 10:22 PM EST Gender Identity Not on file Sexual Orientation Not on file documented as of this encounter Last Filed Vital Signs Vital Sign Reading Time Taken Comments Blood Pressure - - Pulse - - Temperature - - Respiratory Rate - - Oxygen Saturation - - Inhaled Oxygen Concentration - - Weight 81.2 kg (179 lb) 03/30/2024 4:05 PM EDT Height 182.9 cm (6') 03/30/2024 4:05 PM EDT Body Mass Index 24.28 03/30/2024 4:05 PM EDT documented in this encounter Plan of Treatment Upcoming Encounters Date Type Department Care Team (Late st Contact Info) Description 10/12/2024 3:30 PM EDT Office Visit [facility] Cardiology [facility] [address] [facility] [place] [address] Amanda Sen MD [address] [place] [address] documented as of this encounter Procedures Procedure Name Priority Date/Time Associated Diagnosis Comments CT CORONARY CALCIUM SCORE WITHOUT IV CONTRAST Routine 04/21/2024 3:53 PM EDT Encounter for screening for cardiovascular disorders documented in this encounter Results * CT CORONARY CALCIUM SCORE WITHOUT IV CONTRAST (04/21/2024 3:53 PM EDT) Anatomical Region Laterality Modality Computed Tomogra phy 10/18/2023 9:28 PM EDT Narrative 04/21/2024 4:[address] Coronary Calcium Score Without Contrast Indication: screening An axial gated study was performed to evaluate for coronary artery atherosclerosis. Calcified plaques analyzed utilizing the Agatston scoring system. Coronary calcium scoring: Left main: 0 Left anterior descendin Circumflex: 0 Right coronary: 0.2 Visualized mediastinal structures: Unremarkable. Visualized lung vazquez: Clear. Visualized chest wall/upper abdomen: Unremarkable. Conclusion: Total calcium score*: 0.2 *Calcium score table: 0: ?No evidence of CAD. 1-10: ?Minimal CAD. 11-100: ?Mild CAD. 101-400: ??Moderate CAD. Over 400: Extensive CAD. Report reviewed and signed by : Dr. Sam Winston MD on 04/21/2024 4:59 PM. Workstation Name - [id number] Not Vldtd Procedure Note Sam Winston MD - 04/24/2024 CT Coronary Calcium Score Without Contrast Indication: screening An axial gated study was performed to evaluate for coronary arteryatherosclerosis. Calcified plaques analyzed utilizing the Agatston scoringsystem. Coronary calcium scoring: Left main: 0 Left anterior descendin Circumflex: 0 Right coronary: 0.2 Visualized mediastinal structures: Unremarkable. Visualized lung vazquez: Clear. Visualized chest wall/upper abdomen: Unremarkable. Conclusion: Total calcium score*: 0.2 *Calcium score table: 0: No evidence of CAD. 1-10: Minimal CAD. 11-100: Mild CAD. 101-400: Moderate CAD. Over 400: Extensive CAD. Report reviewed and signed by : Dr. Sam Winston MD on 04/21/2024 4:59PM. Workstation Name - [id number] Not Vldtd us Amanda Sen MD IMG CT PROCEDURES Final Resu lt documented in this encounter Visit Diagnoses Diagnosis Encounter for screening for cardiovascular disorders documented in this encounter Care Teams Return To Service Inspector Relationship Specialty Start Date End Date Patrick Woody MD PCP - General Family Medicine 05/22/21 documented as of this encounter
--- OUTSIDE RECORDS SUMMARY | 2024-08-23 16:27 | XMS_ITS | Data Portability ---
Author Organization [place] [facility] Suzi Munoz AONE [place] Address [address] [place] [address] Care Team Providers Care Renal Case Manager Name Role Phone NORMA MACK Primary Care [...] / rigid orthosis to improve their function. Not available 11/13/2023 15:16:29 12/04/2023 12/04/2023 Her vertical pat arely fracture is healing very well. Continue to manage this nonoperatively. Continue in the core flex hinged brace. She can continue with her lunchtime walks. She would like to defer physical therapy at this time. Plan to follow-up in 3 to 4 weeks for repeat assessment and repeat left knee x-rays [email or web address] Not available 12/04/2023 16:25:57 01/01/2024 01/01/2024 She [...] physical examination, tests/diagnostic imaging, and treatment plan [email or web address] Not available 05/03/2024 12:51:59 05/28/2024 05/28/2024 The [...] programs, weight loss with or without a therapy tech/production bow maker assistance, health care specialist bracing if desired/tolerated, prescription strength oral anti-inflammatories [...] Organization Details Last Modified Time Details Appointments None recorded. Lab crystals, synovial fluid 2023 024 Not available 4 09:33:46 cell count w/ diff, synovial fluid 2023 024 [email or web address] Not available 4 09:33:46 culture, synovial fluid 2023 024 [email or web address] Not available 4 09:33:46 Referral orthopedic physical therapist referral - Other Comments: 2023 024 [email or web address] Not available 4 10:55:10 Procedures None recorded. Surgeries None recorded. Imaging XR, knee, 3 view 2023 024 [email or web address] [facility], [address], [place], [address], 4 08:44:02 XR, knee, 3 view 2023 024 [email or web address] [facility], [address], [place], [address], 4 16:28:09 XR, knee, 3 view 2023 024 [email or web address] [facility], [address], [place], [address], 4 19:18:53 XR, knee, 3 view 2023 024 [email or web address] [facility], [address], [place], [address], 4 10:31:56 XR, knee, 3 view 2023 024 [email or web address] [facility], [address], [place], [address], 4 20:58:52 Medication Orders lidocaine (PF) 10 mg/mL (1 %) injection solution 2023 024 [email or web address] [id number], [address], [place], [address], 4 16:28:09 Patient TargetsNo targets recorded. Patient Instructions Encounter Date Encounter Id Patient Instructions Last Modified By Organization Details Last Modified Time 11/13/2023 [id number] X-rays of the le ft knee were obtained in the [place] office on 11/13/2019 force demonstrates a longitudinal lateral patella fracture Not available 11/13/2023 15:16:13 12/04/2023 [id number] X-rays of the le ft knee were obtained in the [place] office on12/04/2023 demonstrates a longitudinal lateral patella fracture with interval callus [email or web address] Not available 12/04/2023 16:26:11 01/01/2024 [id number] X-rays of the le ft knee obtained on 01/01/2024 demonstrate a lateral facet patella fracture. Not available 01/03/2024 12:11:05 05/03/2024 [id number] X-rays of the le ft knee obtained on 05/03/2024 demonstrate a stable lateral facet patella fracture With interval healing from prior x-rays. No new acute osseous abnormalities. [email or web address] Not available 05/03/2024 12:53:00 05/28/2024 [id number] Imaging: {{RIGHT LEFT*}} knee three view radiographs [...] Details Recorded Time Closed fracture patella, vertical 365200177 Active 2023 PB GOFF PA-C [address], [place], [address] , [place] [facility] 4 15:16:02 Pain of left knee region 56172700138982 9 Active [address], [place], [address] , [place] [facility] 4 16:24:26 Closed fracture of patella 12863622 Active 2023 PB GOFF PA-C [address], [place], [address] , [place] [facility] 4 11:11:07 Effusion of joint of left knee 82804479942849 5 Active 2023 PB GOFF PA-C [address], [place], [address] , [place] [facility] 4 12:27:10 Pain of knee region 7721006401 Active 2023 Roque Mckeon MD [address], [place], [address] , [place] [facility] 4 10:50:13 Problem Notes None recorded. Procedures Surgical History Date Name Laterality Status Provider Name and Address Organization Details Recorded Time 4 MJG Knee Aspiration completed PB GOFF PA-C [address], [place], [address], [place] [facility] 05/03/2024 12:52:32 Tmj repair of joint disc completed Zeny Coombs [place] [facility] 11/13/2023 14:36:39 Imaging Results None recorded. [...] Updated DateTime 11/13/2023 182.88 cm 22 kg/m2 65751.96 g Zeny Coombs [place] [facility] 11/13/2023 14:35:24 Date Recorded Body height Provider Name an d Address Organization Details Last Updated DateTime 01/01/2024 182.88 cm Yamilka Connelly [place] [facility] 01/01/2024 16:09:56 Date Recorded Body height Body mass index (BMI) Body weight Provider Name and Address Organization Details Last Updated DateTime 05/03/2024 182.88 cm 22 kg/m2 [address]2347.[address] [place] [facility] 05/03/2024 11:39:58 Date Recorded Body height Provider Name an d Address Organization Details Last Updated DateTime 05/28/[address] [place] [facility] 05/28/2024 10:56:18 Social History Question Answer Notes LastModified by Organizat ion Details LastModified Time Tobacco Smoking Status Never Smoker Zeny damon, [place] [facility] 11/13/2023 14:35:44 What Is Your Level Of Alcohol Consumption? Occasional [email or web address] Information not available 11/13/2023 How Many Times Per Week Do You Consume Alcohol? Less Than 1 Time Per Week Information not available 11/13/2023 Are You Currently Employed? 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 No [email or web address] Information not available 11/13/2023 Do You Or Have You Ever Used Any Other Forms Of Tobacco Or Nicotine? No [email or web address] Information not available 11/13/2023 Sex: Unknown Functional Status None recorded. Mental Status None recorded. Family History Relationship Description Onset Age of this Age Resolved Age Notes LastModified by Organization Details LastModified Time Father History of hypertension [email or web address] Not available 14:36:29 Mother History of hypertension [email or web address] Not available 14:36:29 Medical History Condition Response Osteopenia Y Hypertension Y Asthma Y Gynecological HistoryNo gynecological history recorded. Obstetrics History GPAL:G 0 P 0 0 0 0 Past Encounters Encounter ID Performer Location Encounter Start Date Encounter Closed Date Diagnosis/Indication Diagnosis SNOMED-CT Code Diagnosis ICD10 Code Diagnosis Note [id number] Katerine Bacon MD [facility] [address] [place] [phone] 11/13/2023 14:07:24 11/13/2023 15:10:55 Pain of left knee region 8319867998 78708 M25.562 Additional diagnosis detail: Left knee pain, unspecifie d chronicity Closed fra cture patella, vertical 561779258 S82.025A Additional diagnosis detail: Closed nondisplac ed longitudin al fracture of left patella, initial encounter [id number] MD MARYAN [place] [address] [facility] [address] [place] [address] 12/04/2023 15:49:07 12/04/2023 16:25:23 Closed fracture patella, vertical 049591747 S82.025A Pain of le ft knee region 4507482854 01046 M25.562 Additional diagnosis detail: Left knee pain, unspecifie d chronicity [id number] MD MARYAN Huerta [place] [address] [address] 01/01/2024 15:31:22 01/01/2024 16:18:34 Closed fracture of patella 91680330 S82.001D Additional diagnosis detail: Closed nondisplac ed fracture of right patella with routine healing, unspecifie d fracture morphology , subsequent encounter [id number] MD MARYAN Huerta [address] [place] [address] 05/03/2024 11:23:47 05/03/2024 12:11:29 Closed fracture of patella 79137656 S82.001D Additional diagnosis detail: Closed nondisplac ed fracture of right patella with routine healing, unspecifie d fracture morphology , subsequent encounter Pain of knee region 1003 463002 M25.562 Effusion o f joint of left knee 5594228325 93566 M25.462 [id number] MD MARYAN [facility] [address] [place] [phone] 05/28/2024 10:05:08 05/28/2024 10:55:10 Closed fracture patella, vertical 443603287 S82.025A Pain of knee region 1003 997387 M25.562 Health Concerns Section Related Observation LastModified by Organization Detai ls LastModified Time None Recorded Concern Status LastModified by Organization Details LastModified Time None Recorded Advance Directives Directive None Recorded Payers Encounter Date Sequence Insurance Name Policy Number Policy Redd Covered Member ID Redd Member ID Guarantor Name 11/13/2023 1 [place] [id number] 1 Lalo Zee [id number] Xenia Zee 12/04/2023 1 [place] [id number] 1 Lalo Zee [id number] Xenia Saadia 01/01/2024 1 [place] [id number] 1 Lalo Zee [id number] Xenia Saadia 05/03/2024 1 [place] [id number] 1 Lalo Zee [id number] Xenia Saadia 05/28/2024 1 [place] [id number] 1 Lalo Zee [id number] Xenia Zee Notes Date Note Type [...] 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 Roque Mckeon MD [address], [place], [address], [place] [facility] 05/28/2024 10:59:29 OBGyn Episode No OBEpisode recorded.
--- OUTSIDE RECORDS SUMMARY | 2024-08-23 16:27 | XMS_ITS | Encounter Summary ---
Author Organization [facility] Address [address] [place] [address] Care Team Providers Care Circuit Design Engineer Name Role Phone Patrick Woody MD Primary Care Provider [phone] Encounter Details Date Type Department Care Team (Late st Contact Info) Description 01/15/2023 Scanned Document [facility] [address] [facility] [place] [address] Rudi Valentino MD [address] [place] [address] Social History Tobacco Use Types Packs/Day Years Used Date Smoking Tobacco: Never Assessed Sex and Gender Information Value Date Recorded Sex Assigned at Female 11/28/2022 2:42 PM EDT Gender Identity Female 11/28/2022 2:42 PM EDT Sexual Orientation Heterosexual (straight) 11/28 2:42 PM EDT documented as of this encounter Plan of Treatment Not on file documented as of this encounter Visit Diagnoses Not on filedocumented in this encounter Care Teams Circuit Design Engineer Relationship Specialty Start Date End Date Patrick Woody MD [address] [place] [address] PCP - General Family Medicine 11/28/22 documented as of this encounter
--- OUTSIDE RECORDS SUMMARY | 2024-08-23 16:27 | XMS_ITS | Encounter Summary ---
Author Organization [facility] Address [address] [place] [address] Care Team Providers Care Jewish History Professor Name Role Phone Patrick Woody MD Primary Care Provider [phone] Encounter Details Date Type Department Care Team (Late st Contact Info) Description 04/18/2023 Scanned Document [facility] [address] [place] [address] [place] [address] Jalil Zepeda MD [address] [place] [address] Social History Tobacco Use Types Packs/Day Years Used Date Smoking Tobacco: Never Smokeless Tobacco: Never Alcohol Use Standard Drinks/Week Comments Yes 0 (1 standard drink = 0.6 oz pur e alcohol) Sex and Gender Information Value Date Recorded Sex Assigned at Female 11/28/2022 2:42 PM EDT Gender Identity Female 11/28/2022 2:42 PM EDT Sexual Orientation Heterosexual (straight) 11/28 2:42 PM EDT documented as of this encounter Plan of Treatment Not on file documented as of this encounter Procedures Procedure Name Priority Date/Time Associated Diagnosis Comments PATHOLOGY REPORT 04/18/2023 12:0 0 AM EDT documented in this encounter Results * PATHOLOGY REPORT (04/18/2023 12:00 AM EDT) Jalil Zepeda MD PATHOLOGY/CYTOLOGY ORDERABLES documented in this encounter Visit Diagnoses Not on filedocumented in this encounter Care Teams Jewish History Professor Relationship Specialty Start Date End Date Patrick Woody MD [address] [place] [address] PCP - General Family Medicine 11/28/22 documented as of this encounter
--- OUTSIDE RECORDS SUMMARY | 2024-08-23 16:28 | XMS_ITS | Encounter Summary ---
Author Organization [facility] Address [address] [place] [address] Care Team Providers Care [employer] Dean Name Role Phone Franklyn Vaca MD Primary Care Provider [phone] Patrick Woody MD Primary Care Provider [phone] Encounter Details Date Type Department Care Team (Late st Contact Info) Description 05/22/2021 Scanned Document [address] [place] [address] Provider, Generic Social History Tobacco Use [...] Procedure Name Priority Date/Time Associated Diagnosis Comments IMAGING BREAST/BX/MAMMO 05/22/2021 documented in this encounter Results * IMAGING BREAST/BX/MAMMO (05/22/2021) Anatomical Region Laterality Modality Other Narrative 05/22/2021 Ordered by an unspecified provider. Generic Provider IMG LEGACY PROCEDURE S documented in this encounter Visit Diagnoses Not on filedocumented in this encounter Care Teams [employer] Dean Relationship Specialty Start Date End Date Franklyn Vaca MD [address] [place] [address] PCP - General Internal Medicine 11/06/17 11/27/22 Patrick Woody MD [address] [place] [address] PCP - General Family Medicine 11/28/22 documented as of this encounter
--- OUTSIDE RECORDS SUMMARY | 2024-08-23 16:28 | XMS_ITS | Encounter Summary ---
Author Organization [facility] Address [address] [place] [address] Care Team Providers Care Warehouse Distribution Manager Name Role Phone Patrick Woody MD Primary Care Provider [phone] Encounter Details Date Type Department Care Team (Late st Contact Info) Description 05/03/2024 Lab Requisition [facility] [address] [place] [phone] Chrystal Goff PA [address] [address] Effusion, left knee Social History Tobacco Use Types Packs/Day Years [...] on file documented as of this encounter Plan of Treatment Upcoming Encounters Date Type Department Care Team (Late st Contact Info) Description 10/12/2024 3:30 PM EDT Office Visit [facility] [address] [place] [phone] Amanda Sen MD [address] [place] [address] documented as of this encounter Procedures Procedure Name Priority Date/Time Associated Diagnosis Comments CELL COUNT WITH REFLEX DIFFERENTIAL, BODY FLUID Routine 05/03/2024 12:00 PM EST Effusion, left knee CULTURE BODY FLUID WITH GRAM STAIN Routine 05/03/2024 12:00 PM EST Effusion, left knee DIFFERENTIAL BODY FLUID Routine 05/03/2024 12:00 PM EST Effusion, left knee CRYSTAL IDENTIFICATION, BODY FLUID Routine 05/03/2024 12:00 PM EST Effusion, left knee documented in this encounter Results * (ABNORMAL) Differential body fluid (05/03/2024 12:00 PM EST) Fluid Neutrophils 14.0 <25.0 % 05/03/2024 10:16 PM EST [facility] Fluid Lymphocytes 6.0 <75.0 % 05/03/2024 10:16 PM EST [facility] Fluid Monocytes/Macrop hages 80.0(H) <70.0 % 05/03/2024 10:16 PM EST [facility] Synovial Fluid Structure of left knee region / Unknown 05/03/2024 12:00 PM EST 05/03/2024 8:39 PM EST [facility] BODY FLUIDS AND STOOLS MARIA ELENA MARTE Final Result [facility] [address] [place] [address], [place] [phone] * (ABNORMAL) Cell count with reflex differential, body fluid (05/03/2024 12:00 PM EST) Body Fluid Source Knee 05/03/2024 10:16 PM EST [facility] Comment:LEFT Body Fluid Clarity Cloudy 05/03/2024 10:16 PM EST [facility] Body Fluid Color [place] 05/03/2024 10:16 PM EST [facility] Body Fluid RBC 9,874(H) 0 - 1 /mm3 LAB HEMETOLOGY METHOD 05/03/2024 10:16 PM EST [facility] Body Fluid Total Nucleated Cells 746(H) <150 /mm3 LAB HEMETOLOGY METHOD 05/03/2024 10:16 PM EST [facility] Synovial Fluid Structure of left knee region / Unknown 05/03/2024 12:00 PM EST 05/03/2024 8:39 PM EST us Chrystal ROBERT[facility] BODY FLUIDS AND STOOLS MARIA ELENA MARTE Final Result [facility] [address] [place] [address], [place] [phone] * Crystal identification, body fluid (05/03/2024 12:00 PM EST) Crystals, Fluid Absent Absent 05/03/2024 10:18 PM EST [facility] Synovial Fluid Structure of left knee region / Unknown 05/03/2024 12:00 PM EST 05/03/2024 8:39 PM EST us Chrystal ROBERT[facility] BODY FLUIDS AND STOOLS MARIA ELENA MARTE Final Result [facility] [address] [place] [address], [place] [phone] * Culture body fluid with gram stain (05/03/2024 12:00 PM EST) Fluid Culture No Growth aerobically/a naerobically after 14 days incubation. 05/17/2024 7:21 AM [facility] Gram Stain Result Moderate WBCs present 05/17/2024 7:21 AM [facility] Gram Stain Result No organisms seen 05/17/2024 7:21 AM EST [facility] Synovial Fluid Structure of left knee region / Unknown 05/03/2024 12:00 PM EST 05/03/2024 8:39 PM EST Narrative [facility] - 05/17/2024 7:21 AM EST [facility] ARE NOT ACCEPTABLE FOR THIS CULTURE TYPE. us Chrystal [facility] MICROBIOLOGY - GENERAL MARIA ELENA MARTE Final Result [facility] [address] [place] [address], [place] [phone] documented in this encounter Visit Diagnoses Diagnosis Effusion, left knee documented in this encounter Care Teams Warehouse Distribution Manager Relationship Specialty Start Date End Date Patrick Woody MD PCP - General Family Medicine 05/22/21 documented as of this encounter
--- OUTSIDE RECORDS SUMMARY | 2024-08-23 16:28 | XMS_ITS | Clinical Summary ---
Author Organization [facility] Address [address] [place] [address] Phone Care Team Providers Care Supervisor Shipping Room Name Role Phone Patrick Woody MD Primary Care Provider [phone] Allergies No known active allergies Medications Eliquis 5 mg tablet TAKE 1 TABLET BY MOUTH EVERY 12 HOURS 180 tablet 3 4 Active albuterol HFA (PROAIR HFA ; PROVENTIL HFA ; VENTOLIN HFA) 90 mcg/actuation inhaler Inhale 2 puffs 4 times daily (every 6 hours) as needed for wheezing. Active fluticasone propionate (FLONASE) 50 mcg/actuation nasal spray Administer into affected nostril(s) daily. Active propranolol LA (INDERAL LA) 120 mg 24 hr capsule Take 1 tablet by mouth daily. 7 Active levothyroxine (Synthroid) 150 mcg tablet Take 1 tablet (150 mcg total) by mouth daily. 3 01/21/20 25 Active calcium carbonate/vitam in D3 (CALCIUM CARBONATE-VITAM IN D PO) Take by mouth. 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/09/2018 Immunizations Name Administration Dates Next Due Tdap Tetanus diptheria acell ular pertussis (Boostrix; Adacel) 7yo and older 03/26/2020 Surgical History Surgery Date Site/Laterality Comments TEMPOROMANDIBULAR JOINT SURGERY PROCEDURE:TEMPOROMANDIBULAR JOINT SURGERY COLONOSCOPY 2010 PROCEDURE:COLONOSCOPY;COMMENT:lachelle mylse Medical History Medical History Date Comments Graves' disease DX:Graves' disea se;COMMENT:s/p radiactive iodine treatment Apr 2014 Hypothyroidism DX:Hypothyroidis m;COMMENT:initial diagnosis 1997 but became hyperthyroid in 2007 Hypertension DX:Hypertension Asthma DX:Asthma;COMMEN T:as a child Arrhythmia DX:Arrhythmia Atrial fibrillation (CMS/HCC) DX :Atrial fibrillation (HCC) Family History Medical History Relation Name Comments No Known Problems Daughter 1 No Known Problems Daughter 2 Hypertension Father Colon cancer Maternal Grandfather Osteoporosis Maternal Grandmother Hypertension Mother Breast cancer Neg Hx Diabetes Neg Hx Ovarian cancer Neg Hx Uterine cancer Neg Hx Relation Name Status Comments Daughter 1 Alive Daughter 2 Alive Father Alive Maternal Grandfather Maternal Grandmother Mother Alive Social History Tobacco Use Types Packs/Day Years Used Date Smoking Tobacco: Some Days Smokeless Tobacco: Never Alcohol Use Standard Drinks/Week Comments No 0 (1 standard drink = 0.6 oz pur e alcohol) Comments Unknown Sex and Gender Information Value Date Recorded Sex Assigned at Not on file Legal Sex Female 10:22 PM EST Gender Identity Not on file Sexual Orientation Not on file Obstetrics History Last Filed Vital Signs Vital Sign Reading Time Taken Comments Blood Pressure 144/100 03/30/2024 4:05 PM EDT Sitting Right arm Pulse 77 03/30/2024 4:05 PM EDT Temperature - - Respiratory Rate - - Oxygen Saturation - - Inhaled Oxygen Concentration - - Weight 81.2 kg (179 lb) 03/30/2024 4:05 PM EDT Height 182.9 cm (6') 03/30/2024 4:05 PM EDT Body Mass Index 24.28 03/30/2024 4:05 PM EDT Plan of Treatment Upcoming Encounters Date Type Department Care Team (Late st Contact Info) Description 10/12/2024 3:30 PM EDT Office Visit [facility] Cardiology [facility] [address] [place] [address] Amanda Sen MD [address] [place] [address] [phone] Health Maintenance Due Date Last Done Comments Pneumococcal Vaccine: 50+ Years (1 of 2 - PCV) 1979 Pneumococcal Vaccine: Pediatrics (0 to 5 Years) and At-Risk Patients (6 to 64 Years) (1 of 2 - PCV) 1979 Zoster Vaccines (1 of 2) 2010 Colorectal Cancer Screening: Colonoscopy 05/31/2022 Depression Screening 05/31/2022 HIV Screening 05/31/2022 Hepatitis C Screening 05/31/2022 Social Influencers of Health Screening 05/31/2022 COVID-19 Vaccine (1 - 2023-2 5 season) 2024 Influenza Vaccine (#1) 2024 Hypertension/CHF/CAD Annual BMP Blood Test 04/17/2025 04/17/2024, 04/17/2024, 05/10/2021 Breast Cancer Screening 03/18/2026 03/18/2024 Cervical Cancer Screening: HPV 01/12/2029 01/13/2024 Cholesterol Screening (Lipid Panel) 04/17/2029 04/17/2024, 04/17/2024 DTaP,Tdap,and Td Vaccines (2 - Td or Tdap) 03/26/2030 03/26/2020 RSV Immunization Patients 60 + Years Old (1 - 1-dose 75+ series) 2035 HIB Vaccines Aged Out No longer eligi ble based on patient's age to complete this topic HPV Vaccines Aged Out No longer eligi ble based on patient's age to complete this topic Hepatitis A Vaccines Aged Out No long er eligible based on patient's age to complete this topic Hepatitis B Vaccines Aged Out No long er eligible based on patient's age to complete this topic IPV Vaccines Aged Out No longer eligi ble based on patient's age to complete this topic MMR Vaccines Aged Out No longer eligi ble based on patient's age to complete this topic Meningococcal ACWY Vaccine Aged Out N o longer eligible based on patient's age to complete this topic Meningococcal B Vacine Aged Out No lo nger eligible based on patient's age to complete this topic RSV Immunization Patients Under 20 months Aged Out No longer eligible b ased on patient's age to complete this topic Varicella Vaccines Aged Out No longer eligible based on patient's age to complete this topic Procedures Procedure Name Priority Date/Time Associated Diagnosis Comments ANNUAL BMP BLOOD TEST Routine 04/17/2024 HPV Routine 01/13/2024 from Last 3 Months or Most Recently Relevant to Health Maintenance Results * Annual BMP Blood Test (04/17/2024) Annual BMP Blood Test abstracted Historical Provider MD HEALTH MAINTENANCE Final Result * Cervical Cancer Screening: HPV (01/13/2024) Cervical Cancer Screening: HPV no interpretation , abstracted Historical Provider MD HEALTH MAINTENANCE Final Result from Last 3 Months or Most Recently Relevant to Health Maintenance Insurance [employer] [place] - [place]) Care Teams Supervisor Shipping Room Relationship Specialty Start Date End Date Patrick Woody MD PCP - General Family Medicine 05/22/21
--- OUTSIDE RECORDS SUMMARY | 2024-08-23 16:28 | XMS_ITS | Clinical Summary ---
Author Organization [facility] Address [address] [place] [address] Care Team Providers Care Breeder Service Technician Name Role Phone Patrick Woody MD Primary Care Provider [phone] Allergies No known active allergies Medications Medication Sig Dispensed Refills Start Date End Date Status albuterol 108 (90 Base) MCG/ACT inhaler Inhale 2 puffs into the lungs every 6 (six) hours as needed for wheezing. 0 Active fluticasone (FLONASE) 50 MCG/ACT nasal spray spray/apply 1 spray in each nostril daily. 0 Active apixaban (Eliquis) 5 MG TABS tablet Take 1 tablet (5 mg total) by mouth every 12 (twelve) hours. 180 tablet 3 06/13/2023 Active propranolol (INDERAL LA) 120 MG 24 hr capsule Take 1 capsule (120 mg total) by mouth daily. 90 capsule 3 11/11/2023 Active VITAMIN D PO Take by mouth. 0 Active CALCIUM PO Take by mouth. 0 Active Synthroid 150 MCG tablet Take 1 tablet (150 mcg total) by mouth daily. 90 tablet 1 04/27/2024 04/27/2025 Active Active Problems Problem Noted Date Diagnosed Date Postablative hypothyroidism 11/09/2018 Graves' disease Overview: s/p radiactive iodine treatment Apr 2014 Hypertension Immunizations Name Administration Dates Next Due Adacel (Tdap) 03/26/2020 Family History Medical History Relation Name Comments No Sig Med Hx Daughter 1 No Sig Med Hx Daughter 2 Hypertension Father Colon cancer Maternal Grandfather Osteoporosis Maternal Grandmother Hypertension Mother Breast cancer Neg Hx Diabetes Neg Hx Ovarian cancer Neg Hx Uterine cancer Neg Hx Relation Name Status Comments Daughter 1 Alive Daughter 2 Alive Father Alive Maternal Grandfather Maternal Grandmother Mother Alive Social History Tobacco Use Types Packs/Day Years Used Date Smoking Tobacco: Some Days Smokeless Tobacco: Never Tobacco Cessation:Ready to Q uit: Not Asked; Counseling Given: Not Answered Alcohol Use Standard Drinks/Week Comments No 0 (1 standard drink = 0.6 oz pur e alcohol) Sex and Gender Information Value Date Recorded Sex Assigned at Female 05/10/2021 12:34 PM EST Gender Identity Female 09/02/2023 8:54 AM EDT Sexual Orientation Not on file Job Start Date Occupation Industry Not on file Not on file Not on file Last Filed Vital Signs Vital Sign Reading Time Taken Comments Blood Pressure 144/100 03/30/2024 4:05 PM EDT Pulse 77 03/30/2024 4:05 PM EDT Temperature 36.6 ??C (97.8 ??F) 09/02/2023 8:36 AM ED T Respiratory Rate 18 09/02/2023 8:36 AM EDT Oxygen Saturation 98% 03/30/2024 4:05 PM EDT Inhaled Oxygen Concentration - - Weight 81.2 kg (179 lb) 03/30/2024 4:05 PM EDT Height 182.9 cm (6') 03/30/2024 4:05 PM EDT Body Mass Index 24.28 03/30/2024 4:05 PM EDT Plan of Treatment Health Maintenance Due Date Last Done Comments Hepatitis C Screening 1960 COVID-19 Vaccine (#1) 01/04/1961 Pneumococcal Vaccine (1 of 2 - PCV) 1966 Pneumococcal Vaccine (1 of 2 - PCV) 1966 Depression Screening 1972 BMI Counseling 1978 Tobacco Cessation Counseling 1978 Colon Cancer Screening (Colonoscopy) 2005 Shingrix-Zoster Vaccine (1 o f 2) 2010 Preventative Health Evaluation 08/16/2016 08/16/2015 Breast Cancer Screening (Mammogram) 10/24/2017 10/25/2015 Cervical Cancer Screening (Pap Smear) 08/16/2018 08/16/2015, 09/28/2013, 06/30/2012 Influenza Vaccine (#1) 2024 DTap / Tdap / Td (2 - Td or Tdap) 03/26/2030 03/26/2020 RSV Adult > 60+ Yrs or (1 - 1-dose 75+ series) 2035 Hepatitis B Vaccines Aged Out No long er eligible based on patient's age to complete this topic RSV Ped < 20 months Aged Out No longe r eligible based on patient's age to complete this topic Care Teams Breeder Service Technician Relationship Specialty Start Date End Date Patrick Woody MD [address] [place] [address] PCP - General Family Medicine 05/22/21
--- OUTSIDE RECORDS SUMMARY | 2024-08-23 16:28 | XMS_ITS | Clinical Summary ---
Author Organization [facility] Address [address] [place] [address] Care Team Providers Care Referral Agent Name Role Phone Patrick Woody MD Primary Care Provider [phone] Allergies No known active allergies Medications Medication Sig Dispensed Refills Start Date End Date Status apixaban (Eliquis) 5 MG tablet Take 1 tablet by mouth twice daily (every 12 hours). 05/21/2017 Active levothyroxine (Synthroid) 150 MCG tablet Take 150 mcg by mouth daily. 10/28/2022 Active propranolol (INDERAL LA) 120 MG 24 hr capsule Take 1 tablet by mouth daily. 06/04/2017 Active fluticasone (FloNASE) 50 mcg/spray nasal spray 1 spray into each nostril daily. Active albuterol (PROVENTIL HFA; VENTOLIN HFA) 108 (90 Base) MCG/ACT inhaler Inhale 2 puffs 4 times daily (every 6 hours) as needed for wheezing. Active levothyroxine (Synthroid) 150 MCG tablet Take 150 mcg by mouth daily. 11/18/2023 11/17/2024 Active Active Problems No known active problems Immunizations Name Administration Dates Next Due Tdap 03/26/2020 Family History Medical History Relation Name Comments Colon cancer Maternal Grandfather Relation Name Status Comments Maternal Grandfather Social History Tobacco Use Types Packs/Day Years Used Date Smoking Tobacco: Never Smokeless Tobacco: Never Alcohol Use Standard Drinks/Week Comments Yes 0 (1 standard drink = 0.6 oz pur e alcohol) Sex and Gender Information Value Date Recorded Sex Assigned at Female 11/28/2022 2:42 PM EDT Gender Identity Female 11/28/2022 2:42 PM EDT Sexual Orientation Heterosexual (straight) 11/28 2:42 PM EDT Last Filed Vital Signs Vital Sign Reading Time Taken Comments Blood Pressure 147/93 01/13/2024 3:11 PM EDT Pulse 64 04/18/2023 8:00 AM EDT Temperature 36.5 ??C (97.7 ??F) 04/18/2023 7:34 AM ED T Respiratory Rate 18 04/18/2023 8:00 AM EDT Oxygen Saturation 98% 04/18/2023 8:00 AM EDT Inhaled Oxygen Concentration - - Weight 76.7 kg (169 lb) 01/13/2024 3:11 PM EDT Height 182.9 cm (6') 01/13/2024 3:11 PM EDT Body Mass Index 22.92 01/13/2024 3:11 PM EDT Plan of Treatment Health Maintenance Due Date Last Done Comments Hepatitis C Virus Screening 1960 HIV Screening 1973 Pneumococcal Vaccines 50+ (1 of 1 - PCV) 2010 Zoster (Shingles) Vaccine (1 of 2) 2010 Influenza Vaccine 01/22/2024 04/09/2023 COVID-19 Vaccine (2 - season) 2024 05/08/2023 Mammogram 03/18/2026 03/18/2024, 0601/2023, 05/22/2021, Additional history exists Pap Smear (Ages 21-65) 01/12/2027 01/13/2024 Colonoscopy 04/18/2028 04/18/2023 DTaP/Tdap/Td Vaccines (2 - Td or Tdap) 03/26/2030 03/26/2020 RSV Vaccine 60 years and older and Patients (1 - 1-dose 75+ series) 2035 Hepatitis B Vaccines Aged Out No long er eligible based on patient's age to complete this topic Pneumococcal Vaccine: Pediatric (0-5 Years) and At-Risk Patients (6 to 49 Years) Aged Out No longer eligible based on patient's age to complete this topic Procedures Procedure Name Priority Date/Time Associated Diagnosis Comments MM MAMMO SCREENING W/ TOMOSYNTHESIS BILATERAL Routine 03/18/2024 3:05 PM EDT Breast cancer screening by mammogram THINPREP PAP(UM NURSE) HPV SCR RFX HPV 16,18/45 Routine 01/13/2024 3:44 PM EDT Cervical cancer screening from Last 3 Months or Most Recently Relevant to Health Maintenance Results * MM Breast tomosynthesis screening-Bilateral (03/18/2024 3:05 PM EDT) Anatomical Region Laterality Modality Breast Bilateral Mammography 03/18/2024 2:39 PM EDT Impressions 03/23/2024 2:53 PM EDT There is no mammographic evidence of malignancy. OVERALL ASSESSMENT: BI-RADS 2 - Benign findings RECOMMENDATION: Routine screening mammography recommended in 1 year The patient will receive a lay summary of the results of this breast imaging exam. Lay summaries for mammography examinations will also identify the patient's personal breast tissue composition as required by state law. If the patient has a finding requiring further evaluation, our facility will contact the patient to arrange additional imaging. Lorna Ivey MD Breast imaging fellow Attending Attestation: I have personally reviewed the images and agree with the report as now presented. Interpreted by: ??Lorna Ivey MD Ict Business Development Manager I personally reviewed the images and, if necessary, I edited the report. ??I agree with the report as now presented. Narrative 03/23/2024 2:53 PM EDT EXAMINATION: MM SCREENING WITH TOMOSYNTHESIS, BILATERAL CLINICAL INFORMATION: Routine annual screening mammography. COMPARISON: 11/28/2022, 01/01/2019, 05/29/2018. TECHNIQUE: Examination was performed using full breast technique. Synthesized views of the Bilateral breasts were obtained in standard projections. Tomosynthesis images of the breasts were obtained and displayed at 1 mm increments. Computer-aided detection was utilized by the radiologist in the interpretation of this exam. FINDINGS: The breasts are heterogeneously dense which may obscure small masses. (ACR BI-RADS breast composition Category c)* Right Breast: There are no suspicious masses, grouped calcifications or architectural distortion. Left Breast: Stable focal asymmetry in the right upper outer quadrant. There are no suspicious masses, grouped calcifications or architectural distortion. Liliane Ingram MD IM MAMMOGRAPHY [facility] * ThinPrep Pap(Cigarette Carton Sealer) HPV Scr Rfx HPV 16,18/45 (01/13/2024 3:44 PM EDT) 01/13/2024 3:44 PM EDT Narrative [facility] - 01/23/2024 7:13 AM EDT To view the final report click the scan hyperlink below. Liliane Ingram MD LAB AMB PATH/CYTO OR DERABLES [facility] [address] [place] [address], from Last 3 Months or Most Recently Relevant to Health Maintenance Care Teams Referral Agent Relationship Specialty Start Date End Date Patrick Woody MD [address] [place] [address] PCP - General Family Medicine 11/28/22
== END 2024-08-23 14:27 | disposition home or self-care (01) ==
PROVIDERS: Visit Provider Orthopaedic Surgery
DX: M23.92 Unspecified internal derangement of left knee (principal); M95.8 Other specified acquired deformities of musculoskeletal system
CPT/HCPCS: 99213

== ENCOUNTER 2024-08-31 08:38 | Outpatient (AMB) | payer BC, SELFPAY ==
--- NOTE | 2024-08-31 08:40 | A.OFFVIS_ITS ---
Intake Visit Reasons: OV-Left knee pain/swelling-follow up Intake Note: Xenia is a 64 year old female who presents today for a follow up of her left knee pain. Patient reports having a lot of swelling on the top her knee. She states that she is having a lot of pain in her knee when she walks. Allergies No Known Allergies Allergy (Verified 08/31/24 08:50) HPI HPI OV-Left knee pain/swelling-follow up: Details: Ms. Zee is a 64 yo female who presents to the office today for a f/u of her left pain and swelling. She reports that overall she was doing very well until this past weekend when she reports an increase in pain, swelling and spent most of the time on the couch while icing her knee. [facility] Medical History (Updated 06/28/24 @ 15:16 by Oumar Harrington MD) Left patella fracture Social History Alcohol intake: current Alcohol intake frequency: holidays/special occasions only Patient Tobacco Use Status: Never used Tobacco Current occupational status: employed Review of Systems Const All systems reviewed & are unremarkable except as noted in HPI and below Physical Exam Extrem Other: Left knee moderate effusion. Able to perform range of motion 0-120. NVI Office Procedures Joint Inj/Aspir; Non-Pain Clin Joint Injection/Drain Prep: site was prepped using aseptic technique and injection warnings given Approach Used: lateral parapatellar Procedure: The patient tolerated the procedure well and but had some pain with the injection Shoulders, Hips, Knees, Knee Large Joint Injection [id number]: Left Knee Coding Details: 80 cc of yellow hazy joint fluid mixed with blood was aspirated from the left knee Procedure code (CPT) selection complete Assessment & Plan Assessment & Plan (1) Osteoarthritis of left knee: Code(s): M17.12 - Unilateral primary osteoarthritis, left knee Category: Medical (2) Osteochondral defect of femoral condyle: Code(s): M95.8 - Other specified acquired deformities of musculoskeletal system Category: Medical Plan Ms. Zee is a 64 yo female who presents to the office today for a f/u of her left pain and swelling. She reports that overall she was doing very well until this past weekend when she reports an increase in pain, swelling and spent most of the time on the couch while icing her knee. While in the office today, the patient was offered a left knee joint aspiration to remove the effusion. The patient was explained the risks, benefits, and alternatives to receiving this procedure. After receiving consent, the patient had the procedure done while in the office today. The patient tolerated the procedure well with no complications. There was roughly 80 cc of fluid that was aspirated from the left knee that consisted of yellow hazy joint fluid mixed with blood. Of note, the patient is on Eliquis at baseline. Follow-up will be at her next scheduled follow up appointment with Dr. Harrington, or sooner if needed Coding Level of Care Code Est Pt Level 3 (52471) Diagnoses Osteoarthritis of left knee M17.12 Osteochondral defect of femoral condyle M95.8 CPT Codes Shoulders, Hips, Knees, - Knee Large Joint Injection : Left Knee ([id number])
--- OUTSIDE RECORDS SUMMARY | 2024-08-31 09:26 | XMS_ITS | Encounter Summary ---
Author Organization [facility] Address [address] [place] [address] Care Team Providers Care Yarn Cleaner Name Role Phone Franklyn Vaca MD Primary Care Provider [phone] Patrick Woody MD Primary Care Provider [phone] Encounter Details Date Type Department Care Team (Late st Contact Info) Description 11/21/2022 Scanned Document [address] [place] [id number] Provider, Generic Social History Tobacco Use [...] on filedocumented in this encounter Care Teams Yarn Cleaner Relationship Specialty Start Date End Date Franklyn Vaca MD [address] [place] [id number] PCP - General Internal Medicine 11/06/17 11/27/22 Patrick Woody MD [address] [place] [address] PCP - General Family Medicine 11/28/22 documented as of this encounter
--- OUTSIDE RECORDS SUMMARY | 2024-08-31 09:26 | XMS_ITS | Data Portability ---
Author Organization [place] [facility] Suzi Munoz [place] Address [address] [place] [address] Care Team Providers Care Brimmer Blocker Name Role Phone NORMA MACK Primary Care Provider NORMA MACK Referring Provider [phone] Assessment Encounter Date Assessment Date Assessment LastModified [...] repeat assessment and repeat left knee x-rays [email or web address] Not available 12/04/2023 16:25:57 01/01/2024 01/01/2024 She [...] physical examination, tests/diagnostic imaging, and treatment plan [email or web address] Not available 05/03/2024 12:51:59 05/28/2024 05/28/2024 The [...] programs, weight loss with or without a screen printer helper/wool sacker assistance, guide winder bracing if desired/tolerated, prescription strength oral anti-inflammatories [...] recorded. Lab crystals, synovial fluid 2023 024 [email or web address] Not available 4 09:33:46 cell count w/ diff, synovial fluid 2023 024 [email or web address] Not available 4 09:33:46 culture, synovial fluid 2023 024 [email or web address] Not available 4 09:33:46 Referral orthopedic physical therapist referral - Other Comments: 2023 024 [email or web address] Not available 4 10:55:10 Procedures None recorded. Surgeries None recorded. Imaging XR, knee, 3 view 2023 024 [email or web address] [facility], [address], [place], [address], 4 08:44:02 XR, knee, 3 view 2023 024 [email or web address] [facility], [address], [place], [address], 4 16:28:09 XR, knee, 3 view 2023 024 [email or web address] [facility], [address], [place], [address], 4 19:18:53 XR, knee, 3 view 2023 024 [email or web address] [facility], [address], [place], [address], 4 10:31:56 XR, knee, 3 view 2023 024 [email or web address] [facility], [address], [place], [address], 4 20:58:52 Medication Orders lidocaine (PF) 10 mg/mL (1 %) injection solution 2023 024 [email or web address] [id number], [address], [place], [address], 4 16:28:09 Patient TargetsNo targets recorded. Patient Instructions Encounter Date Encounter Id Patient Instructions Last Modified By Organization Details Last Modified Time 11/13/2023 [id number] X-rays of the le ft knee were obtained in the [place] office on 11/13/2019 force demonstrates a longitudinal lateral patella fracture [email or web address] Not available 11/13/2023 15:16:13 12/04/2023 [id number] X-rays of the le ft knee were obtained in the [place] office on12/04/2023 demonstrates a longitudinal lateral patella fracture with interval callus [email or web address] Not available 12/04/2023 16:26:11 01/01/2024 [id number] X-rays of the le ft knee obtained on 01/01/2024 demonstrate a lateral facet patella fracture. Not available 01/03/2024 12:11:05 05/03/2024 [id number] X-rays of the le ft knee obtained on 05/03/2024 demonstrate a stable lateral facet patella fracture With interval healing from prior x-rays. No new acute osseous abnormalities. [email or web address] Not available 05/03/2024 12:53:00 05/28/2024 [id number] Imaging: {{RIGHT LEFT*}} knee three view radiographs [...] Details Recorded Time Closed fracture patella, vertical 077708182 Active 2023 PB GOFF PA-C [address], [place], [address] , [place] [facility] 4 15:16:02 Pain of left knee region 74648095958649 9 Active [address], [place], [address] , [place] [facility], [facility] 4 16:24:26 Closed fracture of patella 18000402 Active 2023 PB GOFF PA-C [address], [place], [address] , [place] [facility] 4 11:11:07 Effusion of joint of left knee 07831454680648 5 Active 2023 PB GOFF PA-C [address], [place], [address] , [place] [facility] 4 12:27:10 Pain of knee region 6253521318 Active 2023 Roque Mckeon MD [address], [place], [address] , [place] [facility] 4 10:50:13 Problem Notes None recorded. Procedures Surgical History Date Name Laterality Status Provider Name and Address Organization Details Recorded Time 4 MJG Knee Aspiration completed PB GOFF PA-C [address], [place], [address], [place] [facility] 05/03/2024 12:52:32 Tmj repair of joint disc completed Zeny Coombs [place] [facility] 11/13/2023 14:36:39 Imaging Results None recorded. [...] Updated DateTime 11/13/2023 182.88 cm 22 kg/m2 35119.96 g Zeny Coombs [place] [facility] 11/13/2023 14:35:24 Date Recorded Body height Provider Name an d Address Organization Details Last Updated DateTime 01/01/2024 182.88 cm Yamilka Connelly [place] [facility] 01/01/2024 16:09:56 Date Recorded Body height Body mass index (BMI) Body weight Provider Name and Address Organization Details Last Updated DateTime 05/03/2024 182.88 cm 22 kg/m2 [address].[address] [place] [facility] 05/03/2024 11:39:58 Date Recorded Body height Provider Name an d Address Organization Details Last Updated DateTime 05/28/[address] [place] [facility] 05/28/2024 10:56:18 Social History Question Answer Notes LastModified by Organizat ion Details LastModified Time Tobacco Smoking Status Never Smoker Zeny damon, [place] - [facility] 11/13/2023 14:35:44 What Is Your Level Of Alcohol Consumption? Occasional [email or web address] Information not available 11/13/2023 How Many Times Per Week Do You Consume Alcohol? Less Than 1 Time Per Week [email or web address] Information not available 11/13/2023 Are You Currently Employed? 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 No [email or web address] Information not available 11/13/2023 Do You Or Have You Ever Used Any Other Forms Of Tobacco Or Nicotine? No [email or web address] Information not available 11/13/2023 Sex: Unknown Functional Status None recorded. Mental Status None recorded. Family History Relationship Description Onset Age of this Age Resolved Age Notes LastModified by Organization Details LastModified Time Father History of hypertension [email or web address] Not available 14:36:29 Mother History of hypertension [email or web address] Not available 14:36:29 Medical History Condition Response Osteopenia Y Asthma Y Hypertension Y Gynecological HistoryNo gynecological history recorded. Obstetrics History GPAL:G 0 P 0 0 0 0 Past Encounters Encounter ID Performer Location Encounter Start Date Encounter Closed Date Diagnosis/Indication Diagnosis SNOMED-CT Code Diagnosis ICD10 Code Diagnosis Note [id number] Katerine Bacon MD [facility] [address] [place] [address] 11/13/2023 14:07:24 11/13/2023 15:10:55 Pain of left knee region 6723065867 93264 M25.562 Additional diagnosis detail: Left knee pain, unspecifie d chronicity Closed fra cture patella, vertical 289299626 S82.025A Additional diagnosis detail: Closed nondisplac ed longitudin al fracture of left patella, initial encounter [id number] MD MARYAN [place] [address] [facility] [address] [place] [address] 12/04/2023 15:49:07 12/04/2023 16:25:23 Closed fracture patella, vertical 838436824 S82.025A Pain of le ft knee region 7952939062 35286 M25.562 Additional diagnosis detail: Left knee pain, unspecifie d chronicity [id number] MD MARYAN Huerta [place] [address] [address] 01/01/2024 15:31:22 01/01/2024 16:18:34 Closed fracture of patella 04004125 S82.001D Additional diagnosis detail: Closed nondisplac ed fracture of right patella with routine healing, unspecifie d fracture morphology , subsequent encounter [id number] MD MARYAN Huerta [address] [place] [address] 05/03/2024 11:23:47 05/03/2024 12:11:29 Closed fracture of patella 75862813 S82.001D Additional diagnosis detail: Closed nondisplac ed fracture of right patella with routine healing, unspecifie d fracture morphology , subsequent encounter Pain of knee region 1003 718969 M25.562 Effusion o f joint of left knee 8396416293 19228 M25.462 [id number] MD MARYAN [facility] [address] [place] [address] 05/28/2024 10:05:08 05/28/2024 10:55:10 Closed fracture patella, vertical 022958945 S82.025A Pain of knee region 1003 212832 M25.562 Health Concerns Section Related Observation LastModified by Organization Detai ls LastModified Time None Recorded Concern Status LastModified by Organization Details LastModified Time None Recorded Advance Directives Directive None Recorded Payers Encounter Date Sequence Insurance Name Policy Number Policy Redd Covered Member ID Redd Member ID Guarantor Name 11/13/2023 1 [place] [id number] 1 Lalo Zee [id number] Xenia Zee 12/04/2023 1 [place] [id number] 1 Lalo Zee [id number] Xenia Saadia 01/01/2024 1 [place] [id number] 1 Lalo Zee [id number] Xenia Saadia 05/03/2024 1 [place] [id number] 1 Lalo Zee [id number] Xenia Saadia 05/28/2024 1 [place] [id number] 1 Lalo Zee [id number] Xenia Zee Notes Date Note Type [...] 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 [address], [place], [address], [place] [facility] 05/03/2024 12:53:23 05/28/2024 text/html Patient presents [...] work. 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 Roque Mckeon MD [address], [place], [address], [place] [facility] 05/28/2024 10:59:29 OBGyn Episode No OBEpisode recorded.
--- OUTSIDE RECORDS SUMMARY | 2024-08-31 09:26 | XMS_ITS | Encounter Summary ---
Author Organization [facility] Address [address] [place] [address] Care Team Providers Care Claims Analyst Name Role Phone Patrick Woody MD Primary Care Provider [phone] Encounter Details Date Type Department Care Team (Late st Contact Info) Description 01/15/2023 Scanned Document [facility] [address] [facility] [place] [address] [place] [address] Rudi Valentino MD [address] [place] [address] Social History Tobacco Use Types Packs/Day Years [...] on filedocumented in this encounter Care Teams Claims Analyst Relationship Specialty Start Date End Date Patrick Woody MD [address] [place] [address] PCP - General Family Medicine 11/28/22 documented as of this encounter
--- OUTSIDE RECORDS SUMMARY | 2024-08-31 09:26 | XMS_ITS | Encounter Summary ---
Author Organization [facility] Address [address] [place] [address] Care Team Providers Care Adaptive Physical Education Teacher Name Role Phone Patrick Woody MD Primary Care Provider [phone] Encounter Details Date Type Department Care Team (Late st Contact Info) Description 04/18/2023 Scanned Document [facility] [address] [place] [address] [place] [address] Jalil Zepeda MD [address] [place] [address] Social History Tobacco Use Types Packs/Day Years [...] on filedocumented in this encounter Care Teams Adaptive Physical Education Teacher Relationship Specialty Start Date End Date Patrick Woody MD [address] [place] [address] PCP - General Family Medicine 11/28/22 documented as of this encounter
--- OUTSIDE RECORDS SUMMARY | 2024-08-31 09:27 | XMS_ITS | Clinical Summary ---
Author Organization [facility] Address [address] [place] [address] Care Team Providers Care Financial Solutions Advisor Name Role Phone Patrick Woody MD Primary Care Provider [phone] Allergies No known active allergies Medications Medication [...] age to complete this topic Care Teams Financial Solutions Advisor Relationship Specialty Start Date End Date Patrick Woody MD [address] [place] [address] PCP - General Family Medicine 05/22/21
--- OUTSIDE RECORDS SUMMARY | 2024-08-31 09:27 | XMS_ITS | Encounter Summary ---
Author Organization [facility] Address [address] [place] [address] Care Team Providers Care Manager Radiation Name Role Phone Franklyn Vaca MD Primary Care Provider [phone] Patrick Woody MD Primary Care Provider [phone] Encounter Details Date Type Department Care Team (Late st Contact Info) Description 05/22/2021 Scanned Document [address] [place] [address] Provider, Generic Social History Tobacco Use [...] on filedocumented in this encounter Care Teams Manager Radiation Relationship Specialty Start Date End Date Franklyn Vaca MD [address] [place] [address] PCP - General Internal Medicine 11/06/17 11/27/22 Patrick Woody MD [address] [place] [address] PCP - General Family Medicine 11/28/22 documented as of this encounter
--- OUTSIDE RECORDS SUMMARY | 2024-08-31 09:27 | XMS_ITS | Encounter Summary ---
Author Organization [facility] Address [address] [place] [address] Care Team Providers Care Food Cooking Machine Operator Name Role Phone Patrick Woody MD Primary Care Provider [phone] Encounter Details Date Type Department Care Team (Late st Contact Info) Description 05/03/2024 Lab Requisition [facility] Main Lab [address] [place] [phone] Chrystal Goff PA [address] [address] Effusion, left knee Social History Tobacco Use [...] Description 10/12/2024 3:30 PM EDT Office Visit [facility] [address] [place] [phone] Amanda Sen MD [address] [place] [address] documented as of this encounter Procedures Procedure [...] 14.0 <25.0 % 05/03/2024 10:16 PM EST [facility] Fluid Lymphocytes 6.0 <75.0 % 05/03/2024 10:16 PM EST [facility] Fluid Monocytes/Macrop hages 80.0(H) <70.0 % 05/03/2024 10:16 PM EST [facility] Synovial Fluid Structure of left knee region / Unknown 05/03/2024 12:00 PM EST 05/03/2024 8:39 PM EST [facility] BODY FLUIDS AND STOOLS MARIA ELENA MARTE Final Result [facility] [address] [place] [address], [place] [phone] * (ABNORMAL) Cell count with reflex differential, body fluid (05/03/2024 12:00 PM EST) Body Fluid Source Knee 05/03/2024 10:16 PM EST [facility] Comment:LEFT Body Fluid Clarity Cloudy 05/03/2024 10:16 PM EST [facility] Body Fluid Color [place] 05/03/2024 10:16 PM EST [facility] Body Fluid RBC 9,874(H) 0 - 1 /mm3 LAB HEMETOLOGY METHOD 05/03/2024 10:16 PM EST [facility] Body Fluid Total Nucleated Cells 746(H) <150 /mm3 LAB HEMETOLOGY METHOD 05/03/2024 10:16 PM EST [facility] Synovial Fluid Structure of left knee region / Unknown 05/03/2024 12:00 PM EST 05/03/2024 8:39 PM EST us Chrystal ROBERTO [facility] BODY FLUIDS AND STOOLS MARIA ELENA MARTE Final Result [facility] [address] [place] [address], [place] [phone] * Crystal identification, body fluid (05/03/2024 12:00 PM EST) Crystals, Fluid Absent Absent 05/03/2024 10:18 PM EST [facility] Synovial Fluid Structure of left knee region / Unknown 05/03/2024 12:00 PM EST 05/03/2024 8:39 PM EST us Chrystal ROBERTO LAB BODY FLUIDS AND STOOLS MARIA ELENA MARTE Final Result [facility] [address] [place] [address], [place] [phone] * Culture body fluid with gram stain (05/03/2024 12:00 PM EST) Fluid Culture No Growth aerobically/a naerobically after 14 days incubation. 05/17/2024 7:21 AM [facility] Gram Stain Result Moderate WBCs present 05/17/2024 7:21 AM [facility] Gram Stain Result No organisms seen 05/17/2024 7:21 AM EST [facility] Synovial Fluid Structure of left knee region / Unknown 05/03/2024 12:00 PM EST 05/03/2024 8:39 PM EST Narrative [facility] - 05/17/2024 7:21 AM EST [facility] ARE NOT ACCEPTABLE FOR THIS CULTURE TYPE. us Chrystal ROBERTO [facility] MICROBIOLOGY - GENERAL MARIA ELENA MARTE Final Result [facility] [address] [place] [address], [place] [phone] documented in this encounter Visit Diagnoses Diagnosis Effusion, left knee documented in this encounter Care Teams Food Cooking Machine Operator Relationship Specialty Start Date End Date Patrick Woody MD PCP - General Family Medicine 05/22/21 documented as of this encounter
--- OUTSIDE RECORDS SUMMARY | 2024-08-31 09:27 | XMS_ITS | Clinical Summary ---
Author Organization [facility] Address [address] [place] [address] Phone Care Team Providers Care Planting Material Remover Name Role Phone Patrick Woody MD Primary Care Provider [phone] Allergies No known active allergies Medications Eliquis [...] SURGERY PROCEDURE:TEMPOROMANDIBULAR JOINT SURGERY COLONOSCOPY 2010 PROCEDURE:COLONOSCOPY;COMMENT:lachelle myles Medical History Medical History Date Comments Graves' [...] Description 10/12/2024 3:30 PM EDT Office Visit [facility] Card[facility] [address] [place] [address] Amanda Sen MD [address] [place] [phone] Health Maintenance Due Date Last Done Comments [...] Most Recently Relevant to Health Maintenance Insurance [employer] [place] Care Teams Planting Material Remover Relationship Specialty Start Date End Date Patrick Woody MD PCP - General Family Medicine 05/22/21
--- OUTSIDE RECORDS SUMMARY | 2024-08-31 09:27 | XMS_ITS | Encounter Summary ---
Author Organization [facility] [place] [address] Care Team Providers Care Barrel Waterer Name Role Phone Patrick Woody MD Primary Care Provider [phone] Encounter Details Date Type Department Care Team [...] Description 10/12/2024 3:30 PM EDT Office Visit [facility] Card[facility] [address] [facility] [place] [address] Amanda Sen MD [address] [place] [address] documented as of this encounter Procedures Procedure [...] on 04/21/2024 4:59 PM. Workstation Name - [id number] Not Vldtd Procedure Note Sam Winston MD [...] MD on 04/21/2024 4:59PM. Workstation Name - [id number] Not Vldtd us Amanda Sen MD IMG CT PROCEDURES Final Resu lt documented in this encounter Visit Diagnoses Diagnosis Encounter for screening for cardiovascular disorders documented in this encounter Care Teams Barrel Waterer Relationship Specialty Start Date End Date Patrick Woody MD PCP - General Family Medicine 05/22/21 documented as of this encounter
--- OUTSIDE RECORDS SUMMARY | 2024-08-31 09:27 | XMS_ITS | Clinical Summary ---
Author Organization [facility] Address [address] [place] [address] Care Team Providers Care Farm Consultant Name Role Phone Patrick Woody MD Primary Care Provider [phone] Allergies No known active allergies Medications Medication [...] EDT Breast cancer screening by mammogram THINPREP PAP(CALIBRATOR BAROMETERS) HPV SCR RFX HPV 16,18/45 Routine 01/13/2024 [...] now presented. Interpreted by: ??Lorna Ivey MD Enterprise Data Architect I personally reviewed the images and, if [...] MD IM MAMMOGRAPHY ORDE ESTUARDO * ThinPrep Pap(Target Man) HPV Scr Rfx HPV 16,18/45 (01/13/2024 3:44 PM EDT) 01/13/2024 3:44 PM EDT Narrative [facility] - 01/23/2024 7:13 AM EDT To view the final report click the scan hyperlink below. Liliane Ingram MD LAB AMB PATH/CYTO OR DERABLES [facility] [address] [place] [address], from Last 3 Months or Most Recently Relevant to Health Maintenance Care Teams Farm Consultant Relationship Specialty Start Date End Date Patrick Woody MD [address] [place] [address] PCP - General Family Medicine 11/28/22
== END 2024-08-31 09:08 | disposition home or self-care (01) ==
LOC: HO.HOS 08:38
PROVIDERS: Visit Provider Physician Assistant
DX: M17.12 Unilateral primary osteoarthritis, left knee (principal); M95.8 Other specified acquired deformities of musculoskeletal system
CPT/HCPCS: 20610; 99213

== ENCOUNTER → 2024-08-31 08:38 | Outpatient (BNVA) | payer BC, SELFPAY | PROVIDERS: Visit Provider Physician Assistant | DX: M17.12 Unilateral primary osteoarthritis, left knee (principal); M25.462 Effusion, left knee; M95.8 Other specified acquired deformities of musculoskeletal system | CPT/HCPCS: 20610 ==

== ENCOUNTER 2024-10-04 13:33 | Outpatient (AMB) | payer BC, SELFPAY ==
--- NOTE | 2024-10-04 13:39 | MHC.OFFVIS ---
Intake Visit Reasons: OV-LT knee follow up Intake Note: Xenia is a 64 year old female who presents today for a follow up of her left knee OA. At her last visit on 08/31/24 where the left knee was aspirated. This aspiration did provide some relief but she still is having pain and swelling. She did receive the custom knee brace which she has been wearing but she is unsure how often she should be wearing it, if she is wearing it right and if it is even helping. Allergies No Known Allergies Allergy (Verified 08/31/24 08:50) HPI HPI OV-LT knee follow up: Details: Xenia comes in today after having purchased an unloading brace stating that the brace is helping her considerably but she is still unable to return to normal activity. She sustained an injury in October of 2023 at [employer] since then she has been unable to return to her normal activities. CT and MRI were done and showed a fracture of the patella with posterior cruciate ligament injury and medial meniscus tear in the setting of a large osteochondral injury to the medial femoral condyle with significant subchondral edema in both the medial femoral condyle and the medial tibial plateau. This appears to have been a acute injury. She does have some underlying patellofemoral OA. Her primary complaint continues to be medial and anterior knee pain. She can not comfortably walk or climb stairs. He unloading brace is helping her but she is no where near where she needs to be to return to her previous level of activity. She uses a cane to ambulate. [facility] Medical History (Updated 06/28/24 @ 15:16 by Oumar Harrington MD) Left patella fracture Social History Alcohol intake: current Alcohol intake frequency: holidays/special occasions only Patient Tobacco Use Status: Never used Tobacco Current occupational status: employed Physical Exam Extrem Other: 10-130 degrees of motion with tenderness to palpation medial femoral condyle and less so anterolateral patellofemoral joint. There is [id number]-[id number] residual effusion in the knee. She is stable to varus and valgus stress. She walks with antalgia. Assessment & Plan Assessment & Plan (1) Osteochondral defect of femoral condyle: Code(s): M95.8 - Other specified acquired deformities of musculoskeletal system Category: Medical Plan: This is a 64-year-old woman with a injury to her medial femoral condyle that is severe. She has not been able to fully extend her knee and has difficulty walking up and down stairs or going for extended walks. Fortunately she works at home so she has been able to continue working. She would like to try to go back to work 2 to 3 times a week with modifications to avoid stair climbing and to accommodate adequate rest. (2) Patella fracture: Code(s): S82.009A - Unspecified fracture of unspecified patella, initial encounter for closed fracture Category: Medical Plan: Patella fracture is healed and there is no further intervention although it certainly is contributing to worsening of her patellofemoral arthritis. (3) Osteoarthritis of left knee: Code(s): M17.12 - Unilateral primary osteoarthritis, left knee Category: Medical Plan: Patellofemoral OA in the setting of acute medial knee cartilage injury. I do not think there is a simple treatment for this knee and that if she is unable to return to her normal function I would recommend a left knee replacement. She understands this. Started the unloading brace and it is helping. We will continue to have her try to increase her activity and returned to work. She will see me back in 1 month. Coding Level of Care Code Est Pt Level 4 (10781) Diagnoses Osteochondral defect of femoral condyle M95.8 Patella fracture S82.009A Osteoarthritis of left knee M17.12
--- OUTSIDE RECORDS SUMMARY | 2024-10-04 15:34 | XMS_ITS | Encounter Summary ---
Author Organization [facility] Address [address] [place] [address] Care Team Providers Care Print Designer Name Role Phone Patrick Woody MD Primary Care Provider [phone] Encounter Details Date Type Department Care Team (Late st Contact Info) Description 04/18/2023 Scanned Document [facility] [address] [place] [address] [place] [address] Jalil Zepeda MD [address] [place] [id number] Social History Tobacco Use Types Packs/Day Years [...] on filedocumented in this encounter Care Teams Print Designer Relationship Specialty Start Date End Date Patrick Woody MD [address] [place] [address] PCP - General Family Medicine 11/28/22 documented as of this encounter
--- OUTSIDE RECORDS SUMMARY | 2024-10-04 15:34 | XMS_ITS | Clinical Summary ---
Author Organization [facility] Address [address] [place] [address] Care Team Providers Care Electric Vehicle Electrician Name Role Phone Patrick Woody MD Primary Care Provider [phone] Allergies No known active allergies Medications Medication [...] - season) 2024 05/08/2023 Mammogram 03/18/2026 03/18/2024, 06/01/2023, 05/22/2021, Additional history exists Pap Smear (Ages [...] EDT Breast cancer screening by mammogram THINPREP PAP(ARBORIST CLIMBER) HPV SCR RFX HPV 16,18/45 Routine 01/13/2024 [...] now presented. Interpreted by: ??Lorna Ivey MD Furniture Fabricator I personally reviewed the images and, if [...] calcifications or architectural distortion. Liliane Ingram MD IMG MAMMOGRAPHY ORDE ESTUARDO * ThinPrep Pap(Reprint Sorter) HPV Scr Rfx HPV 16,18/45 (01/13/2024 3:44 PM EDT) 01/13/2024 3:44 PM EDT Narrative [facility] - 01/23/2024 7:13 AM EDT To view the final report click the scan hyperlink below. Liliane Ingram MD LAB AMB PATH/CYTO OR DERABLES [facility] [address] [place] [address], from Last 3 Months or Most Recently Relevant to Health Maintenance Care Teams Electric Vehicle Electrician Relationship Specialty Start Date End Date Patrick Woody MD [address] [place] [address] PCP - General Family Medicine 11/28/22
--- OUTSIDE RECORDS SUMMARY | 2024-10-04 15:34 | XMS_ITS | Encounter Summary ---
Author Organization [facility] Address [address] [place] [address] Care Team Providers Care Flour Worker Name Role Phone Patrick Woody MD Primary Care Provider Encounter Details Date Type Department Care Team (Late st Contact Info) Description 05/03/2024 Lab Requisition [facility] Main Lab [address] [place] [phone] Chrystal Goff PA [address] Pooja Nieto [address] [address] Effusion, left knee Social History Tobacco Use [...] Description 10/12/2024 3:30 PM EDT Office Visit [facility] [address] [place] [phone] Amanda Sen MD [address] [place] [address] documented as of this encounter Procedures Procedure [...] 14.0 <25.0 % 05/03/2024 10:16 PM EST [facility] Fluid Lymphocytes 6.0 <75.0 % 05/03/2024 10:16 PM EST [facility] Fluid Monocytes/Macrop hages 80.0(H) <70.0 % 05/03/2024 10:16 PM EST [facility] Synovial Fluid Structure of left knee region / Unknown 05/03/2024 12:00 PM EST 05/03/2024 8:39 PM EST Chrystal ROBERTO LAB BODY FLUIDS AND STOOLS MARIA ELENA MARTE Final Result [facility] [address] [place] [address], [place] [phone] * (ABNORMAL) Cell count with reflex differential, body fluid (05/03/2024 12:00 PM EST) Body Fluid Source Knee 05/03/2024 10:16 PM EST [facility] Comment:LEFT Body Fluid Clarity Cloudy 05/03/2024 10:16 PM EST [facility] Body Fluid Color [place] 05/03/2024 10:16 PM EST [facility] Body Fluid RBC 9,874(H) 0 - 1 /mm3 LAB HEMETOLOGY METHOD 05/03/2024 10:16 PM EST [facility] Body Fluid Total Nucleated Cells 746(H) <150 /mm3 LAB HEMETOLOGY METHOD 05/03/2024 10:16 PM EST [facility] Synovial Fluid Structure of left knee region / Unknown 05/03/2024 12:00 PM EST 05/03/2024 8:39 PM EST us Chrystal ROBERTO LAB BODY FLUIDS AND STOOLS MARIA ELENA MARTE Final Result [facility] [address] [place] [address], [place] [phone] * Crystal identification, body fluid (05/03/2024 12:00 PM EST) Crystals, Fluid Absent Absent 05/03/2024 10:18 PM EST [facility] Synovial Fluid Structure of left knee region / Unknown 05/03/2024 12:00 PM EST 05/03/2024 8:39 PM EST us Chrystal ROBERTO LAB BODY FLUIDS AND STOOLS MARIA ELENA MARTE Final Result [facility] [address] [place] [address], [place] [phone] * Culture body fluid with gram stain (05/03/2024 12:00 PM EST) Fluid Culture No Growth aerobically/a naerobically after 14 days incubation. 05/17/2024 7:21 AM [facility] Gram Stain Result Moderate WBCs present 05/17/2024 7:21 AM [facility] Gram Stain Result No organisms seen 05/17/2024 7:21 AM EST [facility] Synovial Fluid Structure of left knee region / Unknown 05/03/2024 12:00 PM EST 05/03/2024 8:39 PM EST Narrative [facility] - 05/17/2024 7:21 AM EST [facility]ABS ARE NOT ACCEPTABLE FOR THIS CULTURE TYPE. us Chrystal ROBERTO LAB MICROBIOLOGY - GENERAL MARIA ELENA MARTE Final Result [facility] [address] [place] [address], [place] [phone] documented in this encounter Visit Diagnoses Diagnosis Effusion, left knee documented in this encounter Care Teams Flour Worker Relationship Specialty Start Date End Date Patrick Woody MD PCP - General Family Medicine 05/22/21 documented as of this encounter
--- OUTSIDE RECORDS SUMMARY | 2024-10-04 15:34 | XMS_ITS | Encounter Summary ---
Author Organization [facility] [place] [address] Care Team Providers Care Spa Supervisor Name Role Phone Patrick Woody MD Primary Care Provider [phone] Encounter Details Date Type Department Care Team [...] 10/12/2024 3:30 PM EDT Office Visit [facility] Cardiology [facility] [address] [facility] [place] [address] Amanda Sen MD [address] [place] [address] documented as of this encounter Procedures Procedure [...] on 04/21/2024 4:59 PM. Workstation Name - [id number] Not Vldtd Procedure Note Sam Winston MD [...] MD on 04/21/2024 4:59PM. Workstation Name - [id number] Not Vldtd us Amanda Sen MD IMG CT PROCEDURES Final Resu lt documented in this encounter Visit Diagnoses Diagnosis Encounter for screening for cardiovascular disorders documented in this encounter Care Teams Spa Supervisor Relationship Specialty Start Date End Date Patrick Woody MD PCP - General Family Medicine 05/22/21 documented as of this encounter
--- OUTSIDE RECORDS SUMMARY | 2024-10-04 15:34 | XMS_ITS | Encounter Summary ---
Author Organization [facility] Address [address] [place] [address] Care Team Providers Care Clutch Specialist Name Role Phone Franklyn Vaca MD Primary Care Provider [phone] Patrick Woody MD Primary Care Provider [phone] Encounter Details Date Type Department Care Team (Late st Contact Info) Description 11/21/2022 Scanned Document [address] [place] [phone] Provider, Generic Social History Tobacco Use [...] on filedocumented in this encounter Care Teams Clutch Specialist Relationship Specialty Start Date End Date Franklyn Vaca MD [address] [place] [id number] PCP - General Internal Medicine 11/06/17 11/27/22 Patrick Woody MD [address] [place] [address] PCP - General Family Medicine 11/28/22 documented as of this encounter
--- OUTSIDE RECORDS SUMMARY | 2024-10-04 15:34 | XMS_ITS | Clinical Summary ---
Author Organization [facility] Address [address] [place] [address] Phone Care Team Providers Care Slicing Machine Tender Name Role Phone Patrick Woody MD Primary Care Provider [phone] Allergies No known active allergies Medications Eliquis [...] T:as a child Arrhythmia DX:Arrhythmia Atrial fibrillation (CMS/HCC V24, CMS/HCC V28) DX:Atrial fibrillation (HCC) Family History Medical History Relation [...] Description 10/12/2024 3:30 PM EDT Office Visit [facility] Cardiology [facility] [address] [place] [phone] Amanda Sen MD [address] [place] [address] Health Maintenance Due Date Last Done Comments [...] - 2023-2 5 season) 2024 Influenza Vaccine (Season Ended) 2025 Hypertension/CHF/CAD Annual BMP Blood Test 04/17/2025 04/17/2024, 04/17/2024, 05/10/2021 Breast Cancer Screening 03/18/2026 03/18/2024 Cervical Cancer Screening: HPV 01/12/2029 01/13/2024 Cholesterol Screening (Lipid Panel) 04/17/2029 04/17/2024, 04/17/2024 DTaP,Tdap,and Td Vaccines (2 - Td or Tdap) 03/26/2030 03/26/2020 RSV Immunization Adult Patients (1 - 1-dose 75+ series) 2035 HIB [...] age to complete this topic Meningococcal B Vaccine Aged Out No l onger eligible based on patient's age to complete [...] Most Recently Relevant to Health Maintenance Insurance [employer] [place] Care Teams Slicing Machine Tender Relationship Specialty Start Date End Date Patrick Woody MD PCP - General Family Medicine 05/22/21
--- OUTSIDE RECORDS SUMMARY | 2024-10-04 15:34 | XMS_ITS | Clinical Summary ---
Author Organization [facility] Address [address] [place] [address] Care Team Providers Care Flight Controls Engineer Name Role Phone Patrick Woody MD Primary Care Provider [phone] Allergies No known active allergies Medications Medication [...] age to complete this topic Care Teams Flight Controls Engineer Relationship Specialty Start Date End Date Patrick Woody MD [address] [facility] [place] [address] PCP - General Family Medicine 05/22/21
--- OUTSIDE RECORDS SUMMARY | 2024-10-04 15:34 | XMS_ITS | Encounter Summary ---
Author Organization [facility] Address [address] [place] [address] Care Team Providers Care Doughnut Batter Mixer Name Role Phone Patrick Woody MD Primary Care Provider [phone] Encounter Details Date Type Department Care Team (Late st Contact Info) Description 01/15/2023 Scanned Document [facility] [address] [facility] [place] [address] [address] [place] [address] Rudi Valentino MD [address] [place] [address] Social History Tobacco Use Types Packs/Day Years [...] on filedocumented in this encounter Care Teams Doughnut Batter Mixer Relationship Specialty Start Date End Date Patrick Woody MD [address] [place] [address] PCP - General Family Medicine 11/28/22 documented as of this encounter
--- OUTSIDE RECORDS SUMMARY | 2024-10-04 15:34 | XMS_ITS | Data Portability ---
Author Organization [place] [facility] Suzi Munoz AONE Rumson Address [address] [place] [address] Care Team Providers Care Architectural Model Maker Name Role Phone NORMA MACK Primary [...] / rigid orthosis to improve their function. [email or web address] Not available 11/13/2023 15:16:29 12/04/2023 12/04/2023 Her vertical pat arely fracture is healing very well. Continue to manage this nonoperatively. Continue in the core flex hinged brace. She can continue with her lunchtime walks. She would like to defer physical therapy at this time. Plan to follow-up in 3 to 4 weeks for repeat assessment and repeat left knee x-rays Not available 12/04/2023 16:25:57 01/01/2024 01/01/2024 She [...] physical examination, tests/diagnostic imaging, and treatment plan [email or web address] Not available 05/03/2024 12:51:59 05/28/2024 05/28/2024 The [...] programs, weight loss with or without a malted milk supervisor/logistics administrator assistance, meat supervisor bracing if desired/tolerated, prescription strength oral [...] recorded. Lab crystals, synovial fluid 2023 024 [email or web address] Not available 4 09:33:46 cell count w/ diff, synovial fluid 2023 024 Not available 4 09:33:46 culture, synovial fluid 2023 024 [email or web address] Not available 4 09:33:46 Referral orthopedic physical therapist referral - Other Comments: 2023 024 [email or web address] Not available 4 10:55:10 Procedures None recorded. Surgeries None recorded. Imaging XR, knee, 3 view 2023 024 [email or web address] [facility], [address], [place], [address], 4 08:44:02 XR, knee, 3 view 2023 024 [email or web address] [facility], [address], [place], [address], 4 16:28:09 XR, knee, 3 view 2023 024 [email or web address] [facility], [address], [place], [address], 4 19:18:53 XR, knee, 3 view 2023 024 [email or web address] [facility], [address], [place], [address], 4 10:31:56 XR, knee, 3 view 2023 024 [email or web address] [facility], [address], [place], [address], 4 20:58:52 Medication Orders lidocaine (PF) 10 mg/mL (1 %) injection solution 2023 024 [email or web address] [id number], [address], [place], [address], 4 16:28:09 Patient TargetsNo targets recorded. Patient Instructions Encounter Date Encounter Id Patient Instructions Last Modified By Organization Details Last Modified Time 11/13/2023 [id number] X-rays of the le ft knee were obtained in the [place] office on 11/13/2019 force demonstrates a longitudinal lateral patella fracture Not available 11/13/2023 15:16:13 12/04/2023 [id number] X-rays of the le ft knee were obtained in the [place] office on12/04/2023 demonstrates a longitudinal lateral patella fracture with interval callus [email or web address] Not available 12/04/2023 16:26:11 01/01/2024 [id number] X-rays of the le ft knee obtained on 01/01/2024 demonstrate a lateral facet patella fracture. Not available 01/03/2024 12:11:05 05/03/2024 [id number] X-rays of the le ft knee obtained on 05/03/2024 demonstrate a stable lateral facet patella fracture With interval healing from prior x-rays. No new acute osseous abnormalities. [email or web address] Not available 05/03/2024 12:53:00 05/28/2024 [id number] Imaging: {{RIGHT LEFT*}} knee three view radiographs [...] Details Recorded Time Closed fracture patella, vertical 110307331 Active 2023 PB GOFF PA-C [address], [place], [address] , [place] [facility] 4 15:16:02 Pain of left knee region 70260384061932 9 Active [address], [place], [address] , [place] [facility] 4 16:24:26 Closed fracture of patella 44517152 Active 2023 PB GOFF PA-C [address], [place], [address] , [place] [facility] 4 11:11:07 Effusion of joint of left knee 65955154662365 5 Active 2023 PB GOFF PA-C [address], [place], [address] , [place] [facility] 4 12:27:10 Pain of knee region 4199979060 Active 2023 Roque Mckeon MD [address], [place], [address] , [place] [facility] 4 10:50:13 Problem Notes None recorded. Procedures Surgical History Date Name Laterality Status Provider Name and Address Organization Details Recorded Time 4 MJG Knee Aspiration completed PB GOFF PA-C [address], [place], [address], [place] [facility] 05/03/2024 12:52:32 Tmj repair of joint disc completed Zeny Coombs [place] [facility] 11/13/2023 14:36:39 Imaging Results None recorded. [...] Updated DateTime 11/13/2023 182.88 cm 22 kg/m2 73687.96 g Zeny Coombs [place] [facility] 11/13/2023 14:35:24 Date Recorded Body height Provider Name an d Address Organization Details Last Updated DateTime 01/01/2024 182.88 cm Yamilka Connelly [place] [facility] 01/01/2024 16:09:56 Date Recorded Body height Body mass index (BMI) Body weight Provider Name and Address Organization Details Last Updated DateTime 05/03/2024 182.88 cm 22 kg/m2 24272.[address] [place] [facility] 05/03/2024 11:39:58 Date Recorded Body height Provider Name an d Address Organization Details Last Updated DateTime 05/28/[address]24 [address] [facility] 05/28/2024 10:56:18 Social History Question Answer Notes LastModified by Organizat ion Details LastModified Time Tobacco Smoking Status Never Smoker Zeny damon, [place] [facility] 11/13/2023 14:35:44 What Is Your Level Of Alcohol Consumption? Occasional [email or web address] Information not available 11/13/2023 How Many Times Per Week Do You Consume Alcohol? Less Than 1 Time Per Week [email or web address] Information not available 11/13/2023 Are You Currently Employed? 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 No [email or web address] Information not available 11/13/2023 Do You Or Have You Ever Used Any Other Forms Of Tobacco Or Nicotine? No [email or web address] Information not available 11/13/2023 Sex: Unknown Functional Status None recorded. Mental Status None recorded. Family History Relationship Description Onset Age of this Age Resolved Age Notes LastModified by Organization Details LastModified Time Father History of hypertension [email or web address] Not available 14:36:29 Mother History of hypertension [email or web address] Not available 14:36:29 Medical History Condition Response Osteopenia Y Hypertension Y Asthma Y Gynecological HistoryNo gynecological history recorded. Obstetrics History GPAL:G 0 P 0 0 0 0 Past Encounters Encounter ID Performer Location Encounter Start Date Encounter Closed Date Diagnosis/Indication Diagnosis SNOMED-CT Code Diagnosis ICD10 Code Diagnosis Note [id number] Katerine Bacon MD [facility] [address] [place] [phone] 11/13/2023 14:07:24 11/13/2023 15:10:55 Pain of left knee region 3946191263 66708 M25.562 Additional diagnosis detail: Left knee pain, unspecifie d chronicity Closed fra cture patella, vertical 823946015 S82.025A Additional diagnosis detail: Closed nondisplac ed longitudin al fracture of left patella, initial encounter [id number] MD MARYAN [place] [address] [facility] [address] [place] [address] 12/04/2023 15:49:07 12/04/2023 16:25:23 Closed fracture patella, vertical 241570406 S82.025A Pain of le ft knee region 9814928313 78044 M25.562 Additional diagnosis detail: Left knee pain, unspecifie d chronicity [id number] MD MARYAN Huerta [place] [address] [address] 01/01/2024 15:31:22 01/01/2024 16:18:34 Closed fracture of patella 26578144 S82.001D Additional diagnosis detail: Closed nondisplac ed fracture of right patella with routine healing, unspecifie d fracture morphology , subsequent encounter [id number] MD MARYAN Huerta [address] [place] [address] 05/03/2024 11:23:47 05/03/2024 12:11:29 Closed fracture of patella 92451464 S82.001D Additional diagnosis detail: Closed nondisplac ed fracture of right patella with routine healing, unspecifie d fracture morphology , subsequent encounter Pain of knee region 1003 952088 M25.562 Effusion o f joint of left knee 8034364105 36512 M25.462 [id number] MD MARYAN [facility] [address] [place] [address] 05/28/2024 10:05:08 05/28/2024 10:55:10 Closed fracture patella, vertical 684567413 S82.025A Pain of knee region 1003 780721 M25.562 Health Concerns Section Related Observation LastModified by Organization Detai ls LastModified Time None Recorded Concern Status LastModified by Organization Details LastModified Time None Recorded Advance Directives Directive None Recorded Payers Encounter Date Sequence Insurance Name Policy Number Policy Redd Covered Member ID Redd Member ID Guarantor Name 11/13/2023 1 [place] [id number] 1 Lalo Zee [id number] Xenia Zee 12/04/2023 1 [place] [id number] 1 Lalo Zee [id number] Xenia Saadia 01/01/2024 1 [place] [id number] 1 Lalo Zee [id number] Xenia Saadia 05/03/2024 1 [place] [id number] 1 Lalo Zee [id number] Xenia Saadia 05/28/2024 1 [place] [id number] 1 Lalo Zee [id number] Xenia Zee Notes Date Note Type [...] 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 [address], [place], [address], [place] [facility] 05/03/2024 12:53:23 05/28/2024 text/html Patient presents [...] work. 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 Roque Mckeon MD [address], [place], [address], [place] [facility] 05/28/2024 10:59:29 OBGyn Episode No OBEpisode recorded.
--- OUTSIDE RECORDS SUMMARY | 2024-10-04 15:34 | XMS_ITS | Encounter Summary ---
Author Organization [facility] Address [address] [place] [address] Care Team Providers Care Compound Coating Machine Offbearer Name Role Phone Franklyn Vaca MD Primary Care Provider [phone] Patrick Woody MD Primary Care Provider [phone] Encounter Details Date Type Department Care Team (Late st Contact Info) Description 05/22/2021 Scanned Document [address] [place] [phone] Provider, Generic Social History Tobacco Use [...] on filedocumented in this encounter Care Teams Compound Coating Machine Offbearer Relationship Specialty Start Date End Date Franklyn Vaca MD [address] [place] [address] PCP - General Internal Medicine 11/06/17 11/27/22 Patrick Woody MD [address] [place] [address] PCP - General Family Medicine 11/28/22 documented as of this encounter
== END 2024-10-04 14:57 | disposition home or self-care (01) ==
LOC: HO.HOS 13:33
PROVIDERS: Visit Provider Orthopaedic Surgery
DX: M95.8 Other specified acquired deformities of musculoskeletal system (principal); S82.002A Unspecified fracture of left patella, initial encounter for closed fracture; M17.12 Unilateral primary osteoarthritis, left knee
CPT/HCPCS: 99214